=== PATIENT | female | born 1985 | race Caucasian/White ===

== ENCOUNTER 2019-03-16 20:22 | Emergency (ER) | payer SELFPAY ==
[2019-03-16] MEDS ORDERED: LORazepam 2 MG/ML VIAL ONE (21:03)
[2019-03-16] MEDS ORDERED: NA CHLORIDE 0.9% 1,000 ML ONE (21:03)
[2019-03-16] MEDS ORDERED: LEVETIRACETAM 500 MG/5 ML VIAL IV ONE (21:03)
[2019-03-16] MEDS ORDERED: NA CHLORIDE 0.9% 100 ML IV ONE (21:06)
[2019-03-16 21:12] LABS: Absolute Lymphocytes (CBC) 2.2 K/uL (0.7-4.9); Basophils % 0.5 % (0-1.3); Hematocrit 39.8 % (36.0-45.0); Lymphocytes % 21.2 % (15.3-44.8); MPV 7.6 fL (7.6-11.3)
[2019-03-16 21:19] LABS: Protime INR 0.93
[2019-03-16 21:31] LABS: ALT/SGPT 24 U/L (12-78); AST/SGOT 17 U/L (15-37); Albumin 3.8 g/dL (3.4-5.0); Alkaline Phosphatase 76 U/L (45-117); BUN Blood Urea Nitrogen 10 mg/dL (7-18); Bicarbonate 27 mmol/L (21-32); Bilirubin Direct < 0.1 mg/dL (0-0.2); Bilirubin Total 0.1 mg/dL (0.2-1.0); Glucose Level 96 mg/dL (74-106); Potassium 3.7 mmol/L (3.5-5.1); Protein, Total 7.5 g/dL (6.4-8.2); Sodium Level 142 mmol/L (136-145)
--- NOTE | 2019-03-16 22:25 | EDPHYS ---
Physician Documentation [facility] Name: Elsie Chambers Age: 33 yrs Sex: Female : 1985 Arrival Date: 03/16/2019 Time: 20:24 Bed 26 Private MD: Edi Cobb HPI: 03/16 21:18 This 33 yrs old Female presents to ER via Unassigned with complaints of pete Seizure. 21:18 The patient presents after having a single isolated seizure, that lasted 1 minute(s). pete Character of seizure(s): Loss of consciousness: the patient experienced loss of consciousness, Motor activity: focal activity, Incontinence: none, Apnea: the patient did not experience apnea, Circulation: the patient did not experience evidence of pulse disturbance. 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 - Social history:: Smoking status: Patient/guardian denies using tobacco. - Family history:: not pertinent. - Ebola Screening: : No symptoms or risks identified at this time. ROS: 21:18 Constitutional: Negative for fever, chills, and weight loss, Eyes: Negative for injury, pete pain, redness, and discharge, ENT: Negative for injury, pain, and discharge, Neck: Negative for injury, pain, and swelling, Cardiovascular: Negative for chest pain, palpitations, and edema, Respiratory: Negative for shortness of breath, cough, wheezing, and pleuritic chest pain, Abdomen/GI: Negative for abdominal pain, nausea, vomiting, diarrhea, and constipation, Back: Negative for injury and pain, : Negative for injury, bleeding, discharge, and swelling, MS/Extremity: Negative for injury and deformity, Skin: Negative for injury, rash, and discoloration, Psych: Negative for depression, anxiety, suicide ideation, homicidal ideation, and hallucinations, Allergy/Immunology: Negative for hives, rash, and allergies, Endocrine: Negative for neck swelling, polydipsia, polyuria, polyphagia, and marked weight changes, Hematologic/Lymphatic: Negative for swollen nodes, abnormal bleeding, and unusual bruising. 21:18 Neuro: Positive for headache, seizure activity. Exam: 21:18 Constitutional: This is a well developed, well nourished patient who is awake, alert, pete and in no acute distress. Eyes: Pupils equal round and reactive to light, extra-ocular motions intact. Lids and lashes normal. Conjunctiva and sclera are non-icteric and not injected. Cornea within normal limits. Periorbital areas with no swelling, redness, or edema. ENT: Nares patent. No nasal discharge, no septal abnormalities noted. Tympanic membranes are normal and external auditory canals are clear. Oropharynx with no redness, swelling, or masses, exudates, or evidence of obstruction, uvula midline. Mucous membranes moist. Neck: Trachea midline, no thyromegaly or masses palpated, and no cervical lymphadenopathy. Supple, full range of motion without nuchal rigidity, or vertebral point tenderness. No Meningismus. Chest/axilla: Normal chest wall appearance and motion. Nontender with no deformity. No lesions are appreciated. Cardiovascular: Regular rate and rhythm with a normal S1 and S2. No gallops, murmurs, or rubs. Normal PMI, no JVD. No pulse deficits. Respiratory: Lungs have equal breath sounds bilaterally, clear to auscultation and percussion. No rales, rhonchi or wheezes noted. No increased work of breathing, no retractions or nasal flaring. Abdomen/GI: Soft, non-tender, with normal bowel sounds. No distension or tympany. No guarding or rebound. No evidence of tenderness throughout. Back: No spinal tenderness. No costovertebral tenderness. Full range of motion. Skin: Warm, dry with normal turgor. Normal color with no rashes, no lesions, and no evidence of cellulitis. MS/ Extremity: Pulses equal, no cyanosis. Neurovascular intact. Full, normal range of motion. Neuro: Awake and alert, GCS 15, oriented to person, place, time, and situation. Cranial nerves II-XII grossly intact. Motor strength 5/5 in all extremities. Sensory grossly intact. Cerebellar exam normal. Normal gait. Psych: Awake, alert, with orientation to person, place and time. Behavior, mood, and affect are within normal limits. 21:18 Head/face: Noted is contusion, that is superficial, hematoma, of the forehead, Sinus tenderness, is not appreciated. Vital Signs: 20:25 BP 118 / 101; Pulse 100; Resp 18; Temp 98.4; Pulse Ox 100% ; Weight 77.11 kg; Height 5 ea ft. 5 in. (165.10 cm); Pain 7/10; 21:44 BP 173 / 89; Pulse 80; Resp 18; Pulse Ox 97% ; ea 22:58 BP 157 / 85; Pulse 83; Resp 18; Temp 98; Pulse Ox 100% on R/A; ea 20:25 Body Mass Index 28.29 (77.11 kg, 165.10 cm) ea [place] Score: 20:25 Eye Response: spontaneous(4). Verbal Response: oriented(5). Motor Response: obeys ea commands(6). Total: 15. 20:25 Eye Response: spontaneous(4). Verbal Response: oriented(5). Motor Response: obeys ea commands(6). Total: 15. 21:44 Eye Response: spontaneous(4). Verbal Response: oriented(5). Motor Response: obeys ea commands(6). Total: 15. 22:58 Eye Response: spontaneous(4). Verbal Response: oriented(5). Motor Response: obeys ea commands(6). Total: 15. Trauma Score (Adult): 20:25 Eye Response: spontaneous(1); Verbal Response: oriented(1); Motor Response: obeys ea commands(2); Systolic BP: > 89 mm Hg(4); Respiratory Rate: 10 to 29 per min(4); Khris Score: 15; Trauma Score: 12 MDM: 20:24 Patient medically screened. [facility] 21:21 Data reviewed: vital signs, nurses notes, lab test result(s), EKG, radiologic studies, [facility] CT scan. 03/16 20:25 Order name: Acetaminophen [facility] 03/16 20:25 Order name: Basic Metabolic Panel [facility] 03/16 20:25 Order name: CBC with Diff; Complete Time: 21:59 [facility] 03/16 20:25 Order name: ETOH Level; Complete Time: 21:59 [facility] 03/16 20:25 Order name: Hepatic Function; Complete Time: 21:59 [facility] 03/16 20:25 Order name: PT-INR; Complete Time: 21:59 [facility] 03/16 20:25 Order name: Ptt, Activated; Complete Time: 21:59 [facility] 03/16 20:25 Order name: Salicylate; Complete Time: 21:59 [facility] 03/16 20:26 Order name: Acetaminophen Level; Complete Time: 21:59 [facility] 03/16 20:26 Order name: Basic Metabolic Panel; Complete Time: 21:59 [facility] 03/16 21:10 Order name: CT Head C Spine 03/16 20:25 Order name: Urine Test (obtain specimen); Complete Time: 21:52 [facility] 03/16 20:25 Order name: EKG; Complete Time: 20:26 [facility] 03/16 20:25 Order name: EKG - Nurse/Tech; Complete Time: 21:11 [facility] 03/16 20:25 Order name: IV Saline Lock; Complete Time: 20:58 [facility] 03/16 20:25 Order name: Labs collected and sent; Complete Time: 20:58 [facility] 03/16 20:25 Order name: Urine Dipstick-Ancillary (obtain specimen); Complete Time: 21:52 [facility] 03/16 20:25 Order name: Seizure Precautions; Complete Time: 21:11 [facility] 03/16 21:18 Order name: Ice pack; Complete Time: 21:52 [facility] Administered Medications: 21:05 Drug: NS 0.9% 1000 ml Route: IV; Rate: 1 bolus; Site: left hand; ea 22:12 Follow up: Response: No adverse reaction; IV Status: Completed infusion; IV Intake: ea 1000ml 21:10 Drug: Ativan 1 mg Route: IVP; Site: left hand; ea 22:11 Follow up: Response: No adverse reaction ea 21:11 Drug: Keppra 1000 mg Route: IV; Rate: per protocol; Site: left hand; ea 21:30 Follow up: Response: No adverse reaction; IV Status: Completed infusion ea Disposition: 03/16/19 22:01 Discharged to Home. Impression: Epilepsy and recurrent seizures - poorly compliant, Acute maxillary sinusitis - mild. - Condition is Stable. - Discharge Instructions: Seizure, Adult, Sinusitis, Adult, Sinusitis, Adult, [id number], Seizure, Adult, [id number]. - Prescriptions for Keppra 500 mg Oral Tablet - take 2 tablet by ORAL route every 12 hours; 30 tablet. Augmentin 875- 125 mg Oral Tablet - take 1 tablet by ORAL route every 12 hours for 10 days; 20 tablet. - Medication Reconciliation Form, Thank You Letter, Antibiotic Education, Prescription Opioid Use, Work release form, Family Work Release form. - Follow up: Private Physician; When: 2 - 3 days; Reason: Recheck today's complaints, Continuance of care, Re-evaluation by your physician. Follow up: Krishan Hurst; When: 2 - 3 days; Reason: Recheck today's complaints, Re-evaluation by your physician. - Problem is new. - Symptoms have improved. Signatures: Dispatcher [employer] EDMS Edi Ramírez MD MD cha Antunez, Elena RN RN ea Corrections: (The following items were deleted from the chart) 21:25 21:18 Head Brain Wo Cont+CT.RAD.BRZ ordered. [facility] EDMS 21:54 21:25 Chest Single View+RAD.RAD.BRZ ordered. [facility] EDOR 22:45 22:01 03/16/2019 22:01 Discharged to Home. Impression: Epilepsy and recurrent seizures pete - poorly compliant. Condition is Stable. Discharge Instructions: Seizure, Adult, Seizure, Adult, [id number]. Prescriptions for Keppra 500 mg Oral Tablet - take 2 tablet by ORAL route every 12 hours; 30 tablet. and Forms are Medication Reconciliation Form, Thank You Letter, Antibiotic Education, Prescription Opioid Use. Follow up: Private Physician; When: 2 - 3 days; Reason: Recheck today's complaints, Continuance of care, Re-evaluation by your physician. Follow up: Krishan Hurst; When: 2 - 3 days; Reason: Recheck today's complaints, Re-evaluation by your physician. Problem is new. Symptoms have improved. [facility] 22:58 22:45 03/16/2019 22:01 Discharged to Home. Impression: Epilepsy and recurrent seizures ea - poorly compliant; Acute maxillary sinusitis - mild. Condition is Stable. Discharge Instructions: Seizure, Adult, Seizure, Adult, [id number]. Prescriptions for Keppra 500 mg Oral Tablet - take 2 tablet by ORAL route every 12 hours; 30 tablet. and Forms are Medication Reconciliation Form, Thank You Letter, Antibiotic Education, Prescription Opioid Use, Work release form, Family Work Release. Follow up: Private Physician; When: 2 - 3 days; Reason: Recheck today's complaints, Continuance of care, Re-evaluation by your physician. Follow up: Krishan Hurst; When: 2 - 3 days; Reason: Recheck today's complaints, Re-evaluation by your physician. Problem is new. Symptoms have improved. pete
--- NOTE | 2019-03-16 22:25 | ER ---
Nurse's Notes [facility] Name: Elsie Chambers Age: 33 yrs Sex: Female : 1985 Arrival Date: 03/16/2019 Time: 20:24 Bed 26 Private MD: Diagnosis: Epilepsy and recurrent seizures-poorly compliant;Acute maxillary sinusitis-mild Presentation: 03/16 20:25 Presenting complaint: EMS states: Reports pt had a seizure at home, family called EMS. ea Reports pt was post ictal for about thirty minutes after EMS arrived at scene. A \T\ O x 4 now. EMS initiated 20 G IV to left hand, and ns IV fliuds. Pt complaining of nausea and headache. Pt reported she has not taken seizure meds in about two months. Transition of care: patient was not received from another setting of care. Onset of symptoms was March 16, 2019. Risk Assessment: Do you want to hurt yourself or someone else? Patient reports no desire to harm self or others. Initial Sepsis Screen: Does the patient meet any 2 criteria? No. Patient's initial sepsis screen is negative. Does the patient have a suspected source of infection? No. Patient's initial sepsis screen is negative. Care prior to arrival: IV initiated. 20 GA, in the left hand. 20:25 Method Of Arrival: EMS: [facility] ea 20:25 Acuity: ALFA 3 ea 20:25 Mechanism of Injury: Fall from standing position. Trauma event details: Injury occurred ea in the [facility], Injury occurred: at home. Injury occurred: March 16, 2019 Injury occurred at: 19:20. Triage Assessment: 20:25 General: Appears comfortable, Behavior is appropriate for age. Pain: Complains of pain ea in forehead. Neuro: Level of Consciousness is awake, alert, obeys commands, Oriented to person, place, time, situation. Cardiovascular: Patient's skin is warm and dry. Respiratory: Airway is patent Respiratory effort is even, unlabored, Respiratory pattern is regular, symmetrical. Injury Description: Bruise sustained to forehead. 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 - Social history:: Smoking status: Patient/guardian denies using tobacco. - Family history:: not pertinent. - Ebola Screening: : No symptoms or risks identified at this time. Screenin:22 Abuse screen: Denies threats or abuse. Nutritional screening: No deficits noted. ea Tuberculosis screening: No symptoms or risk factors identified. Fall Risk IV access (20 points). Primary Survey: 20:25 NO uncontrolled hemorrhage observed. Breathing/Chest: Respiratory pattern: regular, ea Respiratory effort: spontaneous, unlabored. Circulation: Skin color: pink, Skin temperature: warm. Disability Alert. Exposure/Environment: All clothing and personal items were removed. Forensic evidence collection is not deemed to be indicated at this time. Items placed in patient belonging bag. 21:45 Reassessment Airway Airway Patent Breathing/Chest Respiratory pattern. ea Secondary Survey: 20:25 Musculoskeletal: No deficits noted. Injury Description: Bruise sustained to forehead. ea Assessment: 20:25 General: Appears uncomfortable, Behavior is appropriate for age. Pain: Complains of ea pain in forehead. Neuro: Level of Consciousness is awake, alert, obeys commands, Oriented to person, place, time, situation. EENT: No deficits noted. Cardiovascular: Patient's skin is warm and dry. Respiratory: Airway is patent Respiratory effort is even, unlabored, Respiratory pattern is regular, symmetrical. Derm: Skin is dry, Skin is normal, Skin temperature is warm Bruising that is bright red, on forehead. Musculoskeletal: Circulation, motion, and sensation intact. Vital Signs: 20:25 BP 118 / 101; Pulse 100; Resp 18; Temp 98.4; Pulse Ox 100% ; Weight 77.11 kg; Height 5 ea ft. 5 in. (165.10 cm); Pain 7/10; 21:44 BP 173 / 89; Pulse 80; Resp 18; Pulse Ox 97% ; ea 22:58 BP 157 / 85; Pulse 83; Resp 18; Temp 98; Pulse Ox 100% on R/A; ea 20:25 Body Mass Index 28.29 (77.11 kg, 165.10 cm) ea [place] Coma Score: 20:25 Eye Response: spontaneous(4). Verbal Response: oriented(5). Motor Response: obeys ea commands(6). Total: 15. 20:25 Eye Response: spontaneous(4). Verbal Response: oriented(5). Motor Response: obeys ea commands(6). Total: 15. 21:44 Eye Response: spontaneous(4). Verbal Response: oriented(5). Motor Response: obeys ea commands(6). Total: 15. 22:58 Eye Response: spontaneous(4). Verbal Response: oriented(5). Motor Response: obeys ea commands(6). Total: 15. Trauma Score (Adult): 20:25 Eye Response: spontaneous(1); Verbal Response: oriented(1); Motor Response: obeys ea commands(2); Systolic BP: > 89 mm Hg(4); Respiratory Rate: 10 to 29 per min(4); [place] Score: 15; Trauma Score: 12 ED Course: 20:24 Patient arrived in ED. cf2 20:24 Edi Ramírez MD is Attending Physician. pete 20:25 Patient maintains SpO2 saturation greater than 95% on room air. ea 20:25 Thermoregulation: warm blanket given to patient. ea 20:25 Arm band placed on right wrist. Patient placed in an exam room, on a stretcher, on ea pulse oximetry. 20:25 Patient has correct armband on for positive identification. Placed in gown. Bed in low ea position. Call light in reach. Side rails up X2. 20:25 Seizure precautions initiated. ea 20:38 Camila Morrow, RN is Primary Nurse. ea 20:57 Initial lab(s) drawn, by sd, sent to lab. Inserted saline lock: 22 gauge in right lt1 antecubital area, using aseptic technique. 21:20 Triage completed. ea 21:[address] nj 21:46 CT Head C Spine In Process Unspecified. EDMS 22:01 Krishan Hurst MD is Referral Physician. pete 22:56 No provider procedures requiring assistance completed. IV discontinued, intact, ea bleeding controlled, No redness/swelling at site. Pressure dressing applied. Administered Medications: 21:05 Drug: NS 0.9% 1000 ml Route: IV; Rate: 1 bolus; Site: left hand; ea 22:12 Follow up: Response: No adverse reaction; IV Status: Completed infusion; IV Intake: ea 1000ml 21:10 Drug: Ativan 1 mg Route: IVP; Site: left hand; ea 22:11 Follow up: Response: No adverse reaction ea 21:11 Drug: Keppra 1000 mg Route: IV; Rate: per protocol; Site: left hand; ea 21:30 Follow up: Response: No adverse reaction; IV Status: Completed infusion ea Intake: 22:12 IV: 1000ml; Total: 1000ml. ea 22:50 PO: 0ml; Total: 1000ml. ea Outcome: 22:01 Discharge ordered by . pete 22:57 Discharged to home ambulatory, with family. ea 22:57 Condition: stable 22:57 Discharge instructions given to patient, Instructed on discharge instructions, follow up and referral plans. medication usage, Demonstrated understanding of instructions, follow-up care, medications, Prescriptions given X 2. 22:58 Patient left the ED. ea 22:58 Patient's length of stay was not longer than 2 hours. ea Signatures: Dispatcher [employer] EDEdi King MD MD cha Jordan, Nathan nj Antunez, Elena, RN RN Mellissa Mar lt1 Jesus Tavera 2
[2019-03-16 23:06] VITALS: BP 157/85; TEMP 98; O2SAT 100
--- NOTE | 2019-03-17 11:56 | RAD REPORT ---
EXAM DESCRIPTION: CT - [id number] - 03/17/2019 3:58 am CLINICAL HISTORY: 33 years Female PAIN TECHNIQUE: Contiguous axial CT images obtained through the brain and cervical spine without IV contr ast. Coronal and sagittal reformatted images also provided. This CT exam was performed according to our departmental dose-optimization program, which includes on e or more of the following dose reduction techniques: automated exposure control, adjustment of the m A and/or kV according to patient size, and/or use of iterative reconstruction technique. COMPARISON: No prior exams provided for comparison. FINDINGS: Right frontal scalp hematoma without acute skull fracture. Secretions in the bilateral max illary sinuses. The remainder of the paranasal sinuses and mastoid air cells are clear. Orbital struc tures intact bilaterally. There is no intracranial hemorrhage, extraaxial collection, or acute transcortical infarction. The ve ntricles are normal in size and contour without mass effect or midline shift. There is no acute cervical fracture or spondylolisthesis. Vertebral body and disc space heights are preserved without aggressive osseous lesion. There is no de finite central canal or neural foraminal stenosis at any cervical level. No prevertebral or paraspinal soft tissue swelling. The lung apices are clear. IMPRESSION: Right frontal scalp hematoma. No skull fracture or acute intracranial injury. Mild maxil jinny sinusitis. No acute cervical spine injury. Electronically signed by: Kristen Herrera MD 03/16/2019 10:12 PM DOOR PATCHER Due to temporary technical issues with the PACS/Fluency reporting system, reports are being signed by the in house radiologist as a courtesy to ensure prompt reporting. The interpreting radiologist is f ully responsible for the content of the report.
--- NOTE | 2019-03-17 12:19 | EKG ---
Test Date: 2019-03-16 Test Time: 21:05:09 Sketch Maker: CAYLA MEASUREMENT RESULTS: Intervals: Rate: 109 AK: 152 QRSD: 80 QT: 336 QTc: 452 [place]: P: 40 AK: 152 QRS: -11 T: 11 INTERPRETIVE STATEMENTS: Sinus tachycardia Low voltage QRS Abnormal ECG Compared to ECG 01/31/2016 12:03:36 Sinus rhythm no longer present T-wave abnormality no longer present Possible ischemia no longer present Myocardial infarct finding no longer present Electronically Signed On 03-17-19 12:19:25 PANEL MACHINE SETTER by Mohan Kaur
== END 2019-03-16 22:58 | disposition home or self-care (01) ==
LOC: ER 20:22
DX: G40.802 Other epilepsy, not intractable, without status epilepticus (principal); J01.00 Acute maxillary sinusitis, unspecified; S00.83XA Contusion of other part of head, initial encounter
CPT/HCPCS: 36415; 70450; 72125; 80048; 80076; 80320; 80329; 85025; 85610; 85730; 93005; 96361; 96365; 96375; 99285; J1953; J7030

== ENCOUNTER 2019-11-08 18:54 | Emergency (ER) | payer SELFPAY ==
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
[2019-11-08] MEDS ORDERED: HYDROCODONE/APAP 10/325 TAB ONE (23:36)
--- NOTE | 2019-11-09 15:05 | RAD REPORT ---
EXAM DESCRIPTION: CT Head and Cervical Spine Without Intravenous Contrast CLINICAL HISTORY: The patient is 33 years old and is Female; autoped TECHNIQUE: Axial computed tomography images of the head/brain and cervical spine without intravenous contrast. Sagittal and coronal reformatted images were created and reviewed. This CT exam was pe rformed using one or more of the following dose reduction techniques: automated exposure control, a djustment of the mA and/or kV according to patient size, and/or use of iterative reconstruction techn ique. DLP: 2887 mGy*cm COMPARISON: None. FINDINGS: BRAIN: Unremarkable. No hemorrhage. No significant white matter disease. No edema . VENTRICLES: Unremarkable. No ventriculomegaly. SKULL: No acute fracture. SINUSES: Unremarkable as visualized. No acute sinusitis. MASTOID AIR CELLS: Unremarkable as visualized. No mastoid effusion. VERTEBRAE: Unremarkable. No acute fracture. Normal alignment. DISCS/SPINAL CANAL/NEURAL FORAMINA: No acute findings. No spinal canal stenosis. SOFT TISSUES: Unremarkable. LUNG APICES: Apical lung zones are clear. IMPRESSION: 1. No acute intracranial abnormality. 2. No acute cervical spine fracture or subluxation. EXAM DESCRIPTION: CT Chest, Abdomen and Pelvis With Intravenous Contrast CLINICAL HISTORY: The patient is 33 years old and is Female; autoped TECHNIQUE: Axial computed tomography images of the chest, abdomen and pelvis with intravenous contra st. Sagittal and coronal reformatted images were created and reviewed. This CT exam was performed using one or more of the following dose reduction techniques: automated exposure control, adjustme nt of the mA and/or kV according to patient size, and/or use of iterative reconstruction technique. COMPARISON: None. FINDINGS: CHEST: LUNGS: Unremarkable. No mass. No consolidation. PLEURAL SPACE: Unremarkable. No significant effusion. No pneumothorax. HEART: Unremarkable. No cardiomegaly. No significant pericardial effusion. THYROID: Thyroid is normal. ABDOMEN: LIVER: Unremarkable. No mass. GALLBLADDER AND BILE DUCTS: Unremarkable. No calcified stones. No ductal dilation. PANCREAS: Unremarkable. No ductal dilation. No mass. SPLEEN: Unremarkable. No splenomegaly. ADRENALS: Unremarkable. No mass. KIDNEYS AND URETERS: 2.2 cm left renal cyst. No hydronephrosis. No solid mass. STOMACH AND BOWEL: Unremarkable. No obstruction. No mucosal thickening. PELVIS: APPENDIX: The appendix is seen and is within normal limits. BLADDER: Bladder is decompressed. REPRODUCTIVE: Unremarkable as visualized. CHEST, ABDOMEN and PELVIS: INTRAPERITONEAL SPACE: Small amount of free pelvic fluid, likely physiologic. No free air. BONES/JOINTS: Unremarkable. No acute fracture. No dislocation. SOFT TISSUES: Unremarkable. VASCULATURE: Unremarkable. No aortic aneurysm. LYMPH NODES: Unremarkable. No enlarged lymph nodes. IMPRESSION: No acute intrathoracic, abdominal or pelvic abnormality. Electronically signed by: Leonard Sher DO 11/08/2019 10:27 PM CDT Due to temporary technical issues with the PACS/Fluency reporting system, reports are being signed by the in house radiologist without review as a courtesy to ensure prompt reporting. The interpreting r adiologist is fully responsible for the content of the report.
== END 2019-11-08 23:29 | disposition home or self-care (01) ==
LOC: ER 18:54
DX: M23.8X1 Other internal derangements of right knee (principal); S13.9XXA Sprain of joints and ligaments of unspecified parts of neck, initial encounter; V03.00XA Pedestrian on foot injured in collision with car, pick-up truck or van in nontraffic accident, initial encounter; Y93.89 Activity, other specified; Y92.524 Gas station as the place of occurrence of the external cause; Z91.040 Latex allergy status
CPT/HCPCS: 70450; 71260; 72125; 74177; 82565; 99285; Q9967

== ENCOUNTER 2022-04-17 20:45 | Emergency (ER) | payer OTHER, SELFPAY ==
--- OUTSIDE RECORDS SUMMARY | 2022-04-17 20:50 | XMS REPORT | Continuity of Care Document ---
:1985 Author Organization [facility] t Address [address] [place] [address] [address]. [address] [place] [address] Care Team Providers Name Role Phone Hali Clark Primary Care Physician [phone] Problems This patient has no known problems. Allergies, Adverse Reactions, Alerts This patient has no known allergies or adverse reactions. Medications Ordered Filled Start Stop Current Ordering Indication Dosage Frequency Signature Comments Components Source Medication Medication Date Date Medication? Clinician (SIG) Name Name Dose 2021-0 No Unknown 10-17 00:00: 00 Dose 2021-0 No Unknown 10-17 00:00: 00 Dose 2021-0 No 20 Unknown 10-13 00:00: 00 Dose 2021-0 No 5 Unknown 10-13 00:00: 00 &lt 202-0 No 40 10-10 00:00: 00 &lt 2021-0 No 400 10-09 00:00: 00 TAKE 1 2021-0 No 20 CAPSULE BY 10-09 MOUTH ONCE 00:00: DAILY 00 Dose 2021-0 No 40 Unknown 10-09 00:00: 00 Dose 2021-0 No 25 Unknown 10-09 00:00: 00 Dose 2-0 No 5 Unknown 10-09 00:00: 00 TAKE 1 2021-0 No 20 CAPSULE BY 10-09 MOUTH ONCE 00:00: DAILY 00 &lt 2022-0 No 40 10-09 00:00: 00 &lt 202-0 No 400 10-09 00:00: 00 Dose 2021-0 No 1000 Unknown 10-09 00:00: 00 Dose 2021-0 No 40 Unknown 10-09 00:00: 00 Dose 2-0 No 5 Unknown 10-09 00:00: 00 Dose 2021-0 No 20 Unknown 10-09 00:00: 00 &lt 2022-0 No 400 10-09 00:00: 00 TAKE 1 2022-0 No 20 CAPSULE BY 10-09 MOUTH ONCE 00:00: DAILY 00 Dose 2022-0 No 40 Unknown 10-09 00:00: 00 Dose 2022-0 No 25 Unknown 10-09 00:00: 00 Dose 2022-0 No 5 Unknown 10-09 00:00: 00 TAKE 1 2022-0 No 20 CAPSULE BY 10-09 MOUTH ONCE 00:00: DAILY 00 &lt 2022-0 No 40 10-09 00:00: 00 &lt 2022-0 No 400 10-09 00:00: 00 Dose 2022-0 No 1000 Unknown 10-09 00:00: 00 Dose 2022-0 No 40 Unknown 10-09 00:00: 00 Dose 2022-0 No 5 Unknown 10-09 00:00: 00 Dose 2022-0 No 20 Unknown 10-09 00:00: 00 Dose 2022-0 No 1000 Unknown 10-08 00:00: 00 Dose 2022-0 No 1000 Unknown 10-08 00:00: 00 &lt 2022-0 No 20 10-05 00:00: 00 &lt 2022-0 No 20 10-05 00:00: 00 &lt 2022-0 No 20 10-05 00:00: 00 &lt 2022-0 No 1000 10-03 00:00: 00 &lt 2022-0 No 50 10-03 00:00: 00 &lt 2022-0 No 40 10-03 00:00: 00 TAKE 1 TO 2 2022-0 No 50 TABLETS BY 10-03 MOUTH 00:00: NIGHTLY 00 NEEDED Dose 2022-0 No 5 Unknown 10-03 00:00: 00 &lt 2022-0 No 1000 10-03 00:00: 00 &lt 2022-0 No 50 10-03 00:00: 00 &lt 2022-0 No 40 10-03 00:00: 00 TAKE 1 TO 2 2022-0 No 50 TABLETS BY - MOUTH 00:00: NIGHTLY 00 NEEDED Dose 2022-0 No 5 Unknown 10-03 00:00: 00 &lt 2022-0 No 1000 10-03 00:00: 00 &lt 2022-0 No 50 10-03 00:00: 00 &lt 2022-0 No 40 10-03 00:00: 00 TAKE 1 TO 2 2021-0 No 50 TABLETS BY 7- MOUTH 00:00: NIGHTLY 00 NEEDED Dose 2022-0 No 5 Unknown 10-03 00:00: 00 Dose 2022-0 No 5 Unknown 10-01 00:00: 00 &lt 2022-0 No 1000 10-01 00:00: 00 TAKE 1 2-0 No 20 CAPSULE BY 7 MOUTH ONCE 00:00: DAILY 00 &lt 2022-0 No 5 10-01 00:00: 00 Dose 2022-0 No 25 Unknown 10-01 00:00: 00 Keppra 2022-0 No 1mg 1,000 mg - tablet 00:00: 00 Dose 2022-0 No 5 Unknown 10-01 00:00: 00 &lt 2022-0 No 1000 10-01 00:00: 00 TAKE 1 2-0 No 20 CAPSULE BY 7 MOUTH ONCE 00:00: DAILY 00 &lt 2022-0 No 5 10-01 00:00: 00 Dose 2022-0 No 25 Unknown 10-01 00:00: 00 Keppra 2022-0 No 1mg 1,000 mg - tablet 00:00: 00 Dose 2022-0 No 5 Unknown 10-01 00:00: 00 &lt 2022-0 No 1000 10-01 00:00: 00 TAKE 1 2021-0 No 20 CAPSULE BY 7 MOUTH ONCE 00:00: DAILY 00 &lt 2022-0 No 5 10-01 00:00: 00 Dose 2022-0 No 25 Unknown 10-01 00:00: 00 Keppra 2022-0 No 1mg 1,000 mg - tablet 00:00: 00 Dose 2022-0 No 5 Unknown 10-01 00:00: 00 &lt 2022-0 No 1000 10-01 00:00: 00 TAKE 1 2021-0 No 20 CAPSULE BY 7 MOUTH ONCE 00:00: DAILY 00 &lt 2022-0 No 5 10-01 00:00: 00 Dose 2022-0 No 25 Unknown 10-01 00:00: 00 trazodone 2022-0 No 12mg 50 mg 7- tablet 00:00: 00 fluoxetine 2022-0 No 1mg 40 mg - capsule 00:00: 00 trazodone 2022-0 No 12mg 50 mg 7-26 tablet 00:00: 00 fluoxetine 2022-0 No 1mg 40 mg 7-26 capsule 00:00: 00 trazodone 2022-0 No 12mg 50 mg 7-26 tablet 00:00: 00 fluoxetine 2022-0 No 1mg 40 mg 7-26 capsule 00:00: 00 trazodone 2022-0 No 12mg 50 mg 7-26 tablet 00:00: 00 fluoxetine 2022-0 No 1mg 40 mg 7-26 capsule 00:00: 00 &lt 2022-0 No 20 7-23 00:00: 00 &lt 2022-0 No 20 7-23 00:00: 00 &lt 2022-0 No 20 7-23 00:00: 00 &lt 2022-0 No 20 7-23 00:00: 00 &lt 2022-0 No 5 7-14 00:00: 00 &lt 2022-0 No 1000 7-14 00:00: 00 &lt 2022-0 No 5 7-14 00:00: 00 &lt 2022-0 No 1000 7-14 00:00: 00 &lt 2022-0 No 5 7-14 00:00: 00 &lt 2022-0 No 1000 7-14 00:00: 00 &lt 2022-0 No 5 7-14 00:00: 00 &lt 2022-0 No 1000 7-14 00:00: 00 hydroxyzine 2022-0 No 1mg HCl 10 mg 7-13 tablet 00:00: 00 trazodone 2022-0 No 1mg 50 mg 7-13 tablet 00:00: 00 fluoxetine 2022-0 No 1mg 40 mg 7-13 capsule 00:00: 00 hydroxyzine 2022-0 No 1mg HCl 10 mg 7-13 tablet 00:00: 00 trazodone 2022-0 No 1mg 50 mg 7-13 tablet 00:00: 00 fluoxetine 2022-0 No 1mg 40 mg 7-13 capsule 00:00: 00 hydroxyzine 2022-0 No 1mg HCl 10 mg 7-13 tablet 00:00: 00 trazodone 2022-0 No 1mg 50 mg 7-13 tablet 00:00: 00 fluoxetine 2022-0 No 1mg 40 mg 7-13 capsule 00:00: 00 hydroxyzine 2-0 No 1mg HCl 10 mg 7-13 tablet 00:00: 00 trazodone 2022-0 No 1mg 50 mg 7-13 tablet 00:00: 00 fluoxetine 2022-0 No 1mg 40 mg 7-13 capsule 00:00: 00 &lt 2022-0 No 25 7- 00:00: 00 &lt 2022-0 No 25 7- 00:00: 00 &lt 2022-0 No 25 7- 00:00: 00 &lt 2022-0 No 25 7- 00:00: 00 TAKE 1 2-0 No 20 CAPSULE BY 7-05 MOUTH ONCE 00:00: DAILY 00 TAKE 1 2-0 No 20 CAPSULE BY 7-05 MOUTH ONCE 00:00: DAILY 00 TAKE 1 2-0 No 20 CAPSULE BY 7-05 MOUTH ONCE 00:00: DAILY 00 TAKE 1 2-0 No 20 CAPSULE BY 7-05 MOUTH ONCE 00:00: DAILY 00 &lt 2022-0 No 6-29 00:00: 00 &lt 2022-0 No 6-29 00:00: 00 &lt 2022-0 No 6-29 00:00: 00 &lt 2022-0 No 6-29 00:00: 00 Dose 2022-0 No Unknown 6-28 00:00: 00 Dose 2022-0 No Unknown 6-28 00:00: 00 Dose 2022-0 No Unknown 6-28 00:00: 00 Dose 2022-0 No Unknown 6-28 00:00: 00 &lt 2022-0 No 6-27 00:00: 00 TAKE 1 2-0 No CAPSULE BY 6-27 MOUTH ONCE 00:00: DAILY 00 &lt 2022-0 No 6-27 00:00: 00 Dose 2022-0 No Unknown 6-27 00:00: 00 Dose 2022-0 No Unknown 6-27 00:00: 00 sumatriptan 2022-0 No 1mg 25 mg 6-27 tablet 00:00: 00 Keppra 2022-0 No 1mg 1,000 mg 6-27 tablet 00:00: 00 acyclovir 2022-0 No 1mg 400 mg 6-27 tablet 00:00: 00 Dose 2022-0 No Unknown 6-27 00:00: 00 Dose 2022-0 No Unknown 6-27 00:00: 00 &lt 2022-0 No 6-27 00:00: 00 Dose 2022-0 No Unknown 6- 00:00: 00 TAKE 1 2-0 No CAPSULE BY 6-27 MOUTH ONCE 00:00: DAILY 00 &lt 2022-0 No 6- 00:00: 00 Dose 2022-0 No Unknown 6- 00:00: 00 Dose 2022-0 No Unknown 6- 00:00: 00 Dose 2022-0 No Unknown 6- 00:00: 00 Dose 2022-0 No Unknown 6- 00:00: 00 Dose 2022-0 No Unknown 6- 00:00: 00 Dose 2022-0 No Unknown 6 00:00: 00 Dose 2022-0 No Unknown 6 00:00: 00 Dose 2022-0 No Unknown 6 00:00: 00 Dose 2022-0 No Unknown 6 00:00: 00 Dose 2022-0 No Unknown 6 00:00: 00 Dose 2022-0 No Unknown 6 00:00: 00 sumatriptan 2022-0 No 1mg 25 mg 6-27 tablet 00:00: 00 Keppra 2-0 No 1mg 1,000 mg 6-27 tablet 00:00: 00 acyclovir 2-0 No 1mg 400 mg 6-27 tablet 00:00: 00 Dose 2-0 No Unknown 6 00:00: 00 Dose 2022-0 No Unknown 6- 00:00: 00 &lt 2022-0 No 6- 00:00: 00 TAKE 1 2-0 No CAPSULE BY 6 MOUTH ONCE 00:00: DAILY 00 &lt 2022-0 No 6- 00:00: 00 Dose 2022-0 No Unknown 6- 00:00: 00 Dose 2022-0 No Unknown 6- 00:00: 00 Dose 2022-0 No Unknown 6 00:00: 00 Dose 2022-0 No Unknown 6- 00:00: 00 Dose 2022-0 No Unknown 6 00:00: 00 Dose 2022-0 No Unknown 6- 00:00: 00 Dose 2022-0 No Unknown 6 00:00: 00 sumatriptan 2022-0 No 1mg 25 mg 6-27 tablet 00:00: 00 Keppra 2022-0 No 1mg 1,000 mg 6-27 tablet 00:00: 00 acyclovir 2022-0 No 1mg 400 mg 6-27 tablet 00:00: 00 Dose 2022-0 No Unknown 6-27 00:00: 00 Dose 2022-0 No Unknown 6-27 00:00: 00 &lt 2022-0 No 6-27 00:00: 00 TAKE 1 2022-0 No CAPSULE BY 6-27 MOUTH ONCE 00:00: DAILY 00 &lt 2022-0 No 6-27 00:00: 00 Dose 2022-0 No Unknown 6-27 00:00: 00 Dose 2022-0 No Unknown 6- 00:00: 00 Dose 2022-0 No Unknown 6- 00:00: 00 Dose 2022-0 No Unknown 6- 00:00: 00 Dose 2022-0 No Unknown 6- 00:00: 00 Dose 2022-0 No Unknown 6- 00:00: 00 Dose 2022-0 No Unknown 6-27 00:00: 00 sumatriptan 2022-0 No 1mg 25 mg 6-27 tablet 00:00: 00 Keppra 2022-0 No 1mg 1,000 mg 6-27 tablet 00:00: 00 acyclovir 2022-0 No 1mg 400 mg 6-27 tablet 00:00: 00 sumatriptan 2022-0 No 1mg 25 mg 6-27 tablet 00:00: 00 Keppra 2022-0 No 1mg 1,000 mg 6-27 tablet 00:00: 00 acyclovir 2022-0 No 1mg 400 mg 6-27 tablet 00:00: 00 Dose 2022-0 No Unknown 6-27 00:00: 00 Dose 2022-0 No Unknown 6-27 00:00: 00 Dose 2022-0 No Unknown 6-27 00:00: 00 &lt 2022-0 No 6-27 00:00: 00 TAKE 1 2022-0 No CAPSULE BY 6-27 MOUTH ONCE 00:00: DAILY 00 &lt 2022-0 No 6-27 00:00: 00 Dose 2022-0 No Unknown 6-27 00:00: 00 Dose 2022-0 No Unknown 6-27 00:00: 00 Dose 2022-0 No Unknown 6- 00:00: 00 Dose 2022-0 No Unknown 6- 00:00: 00 Dose 2022-0 No Unknown 6- 00:00: 00 Dose 2022-0 No Unknown 6- 00:00: 00 Dose 2022-0 No Unknown 6- 00:00: 00 Dose 2022-0 No Unknown 6- 00:00: 00 Bromfed DM 1-0 No 5mg/5 2 mg-30 4-28 mL mg-10 mg/5 00:00: mL oral 00 syrup Bromfed DM 1-0 No 5mg/5 2 mg-30 4-28 mL mg-10 mg/5 00:00: mL oral 00 syrup Bromfed DM 1-0 No 5mg/5 2 mg-30 4-28 mL mg-10 mg/5 00:00: mL oral 00 syrup Bromfed DM 1-0 No 5mg/5 2 mg-30 4-28 mL mg-10 mg/5 00:00: mL oral 00 syrup Bromfed DM 1-0 No 5mg/5 2 mg-30 4-28 mL mg-10 mg/5 00:00: mL oral 00 syrup metronidazo 2018-0 No 1% le 0.75 % 7-24 vaginal gel 00:00: 00 metronidazo 2018-0 No 1% le 0.75 % 7-24 vaginal gel 00:00: 00 metronidazo 2018-0 No 1% le 0.75 % 7-24 vaginal gel 00:00: 00 metronidazo 2018-0 No 1% le 0.75 % 7-24 vaginal gel 00:00: 00 metronidazo 2018-0 No 1% le 0.75 % 7-24 vaginal gel 00:00: 00 Vital Signs Vital Name Observation Time Observation Value Comments Source BP Systolic 2022-01-16 11:50:00 118 mm[Hg] BP Diastolic 2022-01-16 11:50:00 86 mm[Hg] Weight Measured 2022-01-16 11:50:00 202.00 pounds Height Measured 2022-01-16 11:50:00 64.00 inches Body Temperature 2022-01-16 11:50:00 98.20 degrees Heart Rate 2022-01-16 11:50:00 81.00 /min Respiratory Rate 2022-01-16 11:50:00 BP Systolic 2021-10-09 09:29:00 105 mm[Hg] BP Diastolic 2021-10-09 09:29:00 75 mm[Hg] Weight Measured 2021-10-09 09:29:00 209.00 pounds Height Measured 2021-10-09 09:29:00 64.00 inches Body Temperature 2021-10-09 09:29:00 97.80 degrees Heart Rate 2021-10-09 09:29:00 96.00 /min Respiratory Rate 2021-10-09 09:29:00 18.00 /min BP Systolic 2021-10-03 14:01:00 107 mm[Hg] BP Diastolic 2021-10-03 14:01:00 75 mm[Hg] Weight Measured 2021-10-03 14:01:00 211.00 pounds Height Measured 2021-10-03 14:01:00 64.00 inches Body Temperature 2021-10-03 14:01:00 98.40 degrees Heart Rate 2021-10-03 14:01:00 80.00 /min Respiratory Rate 2021-10-03 14:01:00 18.00 /min BP Systolic 2021-10-01 17:09:00 118 mm[Hg] BP Diastolic 2021-10-01 17:09:00 84 mm[Hg] Weight Measured 2021-10-01 17:09:00 212.00 pounds Height Measured 2021-10-01 17:09:00 64.00 inches Body Temperature 2021-10-01 17:09:00 98.30 degrees Heart Rate 2021-10-01 17:09:00 96.00 /min Respiratory Rate 2021-10-01 17:09:00 18.00 /min BP Systolic 2021-09-01 16:47:00 137 mm[Hg] BP Diastolic 2021-09-01 16:47:00 94 mm[Hg] Weight Measured 2021-09-01 16:47:00 215.00 pounds Height Measured 2021-09-01 16:47:00 64.00 inches Body Temperature 2021-09-01 16:47:00 98.20 degrees Heart Rate 2021-09-01 16:47:00 86.00 /min Respiratory Rate 2021-09-01 16:47:00 18.00 /min BP Systolic 2020-01-04 14:02:00 130 mm[Hg] BP Diastolic 2020-01-04 14:02:00 87 mm[Hg] Weight Measured 2020-01-04 14:02:00 195.40 pounds Height Measured 2020-01-04 14:02:00 64.00 inches Body Temperature 2020-01-04 14:02:00 98.60 degrees Heart Rate 2020-01-04 14:02:00 96.00 /min Respiratory Rate 2020-01-04 14:02:00 18.00 /min BP Systolic 2017-09-21 16:47:00 126 mm[Hg] BP Diastolic 2017-09-21 16:47:00 88 mm[Hg] Weight Measured 2017-09-21 16:47:00 178.80 pounds Height Measured 2017-09-21 16:47:00 64.00 inches Body Temperature 2017-09-21 16:47:00 98.40 degrees Heart Rate 2017-09-21 16:47:00 87.00 /min Respiratory Rate 2017-09-21 16:47:00 12.00 /min BP Systolic 2016-05-14 16:46:00 108 mm[Hg] BP Diastolic 2016-05-14 16:46:00 77 mm[Hg] Weight Measured 2016-05-14 16:46:00 183.80 pounds Height Measured 2016-05-14 16:46:00 Body Temperature 2016-05-14 16:46:00 98.00 degrees Heart Rate 2016-05-14 16:46:00 89.00 /min Respiratory Rate 2016-05-14 16:46:00 18.00 /min Procedures This patient has no known procedures. Plan of Care Planned Activity Planned Date Details Comments Source Goal Plan of Care Note [code = 12408-5] Goal Plan of Care Note [code = 26975-5] Goal Plan of Care Note [code = 64682-6] Goal Plan of Care Note [code = 14339-9] Goal Plan of Care Note [code = 38261-7] Goal Plan of Care Note [code = 89361-3] Goal Plan of Care Note [code = 60835-7] Goal Plan of Care Note [code = 64350-8] Goal Plan of Care Note [code = 79777-4] Goal Plan of Care Note [code = 85097-2] Goal Plan of Care Note [code = 03983-6] Goal Plan of Care Note [code = 40068-2] Goal Plan of Care Note [code = 35013-9] Goal Plan of Care Note [code = 33647-8] Goal Plan of Care Note [code = 03036-5] Goal Plan of Care Note [code = 94840-8] Goal Plan of Care Note [code = 11246-4] Goal Plan of Care Note [code = 45446-8] Goal Plan of Care Note [code = 52376-4] Goal Plan of Care Note [code = 01872-4] Goal Plan of Care Note [code = 21902-6] Goal Plan of Care Note [code = 00958-4] Goal Plan of Care Note [code = 11125-0] Goal Plan of Care Note [code = 87026-2] Goal Plan of Care Note [code = 62935-5] Goal Plan of Care Note [code = 75001-3] Goal Plan of Care Note [code = 46291-5] Goal Plan of Care Note [code = 06086-5] Goal Plan of Care Note [code = 23241-8] Goal Plan of Care Note [code = 09900-3] Goal Plan of Care Note [code = 49517-0] Goal Plan of Care Note [code = 35344-3] Goal Plan of Care Note [code = 92586-1] Goal Plan of Care Note [code = 70229-4] Goal Plan of Care Note [code = 51073-3] Goal Plan of Care Note [code = 65423-3] Goal Plan of Care Note [code = 05167-2] Goal Plan of Care Note [code = 04559-3] Goal Plan of Care Note [code = 48005-1] Goal Plan of Care Note [code = 41431-5] Goal Plan of Care Note [code = 51371-7] Goal Plan of Care Note [code = 66081-2] Goal Plan of Care Note [code = 61125-2] Goal Plan of Care Note [code = 17114-4] Goal Plan of Care Note [code = 46397-7] Goal Plan of Care Note [code = 20763-0] Goal Plan of Care Note [code = 42109-1] Goal Plan of Care Note [code = 66783-8] Goal Plan of Care Note [code = 03265-5] Goal Plan of Care Note [code = 89330-5] Goal Plan of Care Note [code = 01667-3] Goal Plan of Care Note [code = 37275-9] Goal Plan of Care Note [code = 94060-2] Goal Plan of Care Note [code = 86935-3] Goal Plan of Care Note [code = 11481-3] Goal Plan of Care Note [code = 61832-7] Goal Plan of Care Note [code = 88343-7] Goal Plan of Care Note [code = 51176-7] Goal Plan of Care Note [code = 68122-0] Goal Plan of Care Note [code = 20561-5] Goal Plan of Care Note [code = 06741-6] Goal Plan of Care Note [code = 58525-2] Goal Plan of Care Note [code = 58815-4] Goal Plan of Care Note [code = 89053-6] Goal Plan of Care Note [code = 48862-1] Goal Plan of Care Note [code = 28682-3] Goal Plan of Care Note [code = 98577-0] Goal Plan of Care Note [code = 09364-8] Goal Plan of Care Note [code = 61161-8] Goal Plan of Care Note [code = 98939-3] Goal Plan of Care Note [code = 00247-4] Goal Plan of Care Note [code = 39034-1] Goal Plan of Care Note [code = 98221-4] Goal Plan of Care Note [code = 59683-2] Goal Plan of Care Note [code = 17328-5] Goal Plan of Care Note [code = 88050-6] Goal Plan of Care Note [code = 06702-7] Goal Plan of Care Note [code = 29289-4] Goal Plan of Care Note [code = 96384-9] Goal Plan of Care Note [code = 58256-5] Goal Plan of Care Note [code = 78491-4] Goal Plan of Care Note [code = 09392-4] Goal Plan of Care Note [code = 90398-0] Goal Plan of Care Note [code = 10744-3] Goal Plan of Care Note [code = 96800-2] Goal Plan of Care Note [code = 85043-6] Goal Plan of Care Note [code = 75092-4] Goal Plan of Care Note [code = 29380-2] Goal Plan of Care Note [code = 10430-2] Goal Plan of Care Note [code = 56305-0] Goal Plan of Care Note [code = 99055-7] Goal Plan of Care Note [code = 14277-4] Goal Plan of Care Note [code = 13354-6] Goal Plan of Care Note [code = 46869-8] Goal Plan of Care Note [code = 99655-0] Goal Plan of Care Note [code = 26940-5] Encounters Start End Encounter Admission Attending Care Care Encounter Source Date/Time Date/Time Type Type Clinicians Facility Department ID 2022-01-26 2022-01-26 Outpatient [facility] SFA [id number] Dre 15:47:59 15:47:59 [id number] F Ajay 2022-01-16 2022-01-16 Outpatient SFA SFA [id number] Dre 11:45:20 11:45:20 1111 F Ajay 2022-01-16 2022-01-16 Outpatient [id number] 00:00:00 00:00:00 Visit [id number]-[id number] -[id number] 2022-01-15 2022-01-15 Outpatient SFA SFA [id number] 022 Dre 11:57:54 11:57:54 [id number] F Ajay 2021-10-09 2021-10-09 Outpatient [id number] 00:00:00 00:00:00 Visit [id number] [id number] -[id number]-206 [id number] 2021-10-03 2021-10-03 Outpatient [id number] 00:00:00 00:00:00 Visit [id number] -[id number] [id number] 2021-10-01 Outpatient [id number] 00:00:00 00:00:00 Visit [id number]-[id number] beb-462f-8 -[id number]-[id number] [id number] 2511-06-27 2021-09-01 Outpatient [id number] 00:00:00 00:00:00 Visit [id number] -[id number]-li3 [id number] Results Test Description Test Time Test Comments Results Result Comments Source LIPID PANEL 2021-10-10 03:00:35 Test Item Value Reference Range Interpretation Comme nts CHOLESTEROL (test code = 2210) 205 MG/DL <200 H TRIGLYCERIDES (test code = 2232) 153 MG/DL <150 H HDL CHOLESTEROL (test code = 37 MG/DL >39 L 2219) CALC LDL CHOL (test code = 2237) 140 MG/DL <100 H NOTE: CALCULATED LDL IS BASED ON MENA-ZARCO METHOD WHICHINCLUDES A DJUSTABLE TRIGLYCERIDE:VL DL CHOLESTEROL RATIO.THIS FACT OR VARIES BY MEASURED TRIGLY CERIDE AND NON-HDLCHOLESTE ROL CONCENTRATIONS WITH INCREASED CALCULATED LDL SEENIN HIGHER T RIGLYCERIDE OR LOWER NON-HDL S PECIMENS. FOR MOREINFORMATION , SEE CLIENT ANNOUNCEMENT AT [email or web address] RATIO LDL/HDL (test code = 3.78 RATIO <3.22 H 2237) COMPREHENSIVE METABOLIC [id number] 03:00:35 Test Item Value Reference Range Interpretation Comments GLUCOSE (test code = 92 MG/DL 70-99 2216) BUN (test code = 7 MG/DL 6-20 2207) CREATININE (test 0.95 MG/DL 0.60-1.30 code = 2214) eGFR (2020 CKD-EPI) 80 >60 (test code = 73054) ML/MIN/1.73 CALC BUN/CREAT (test 7 RATIO 6-28 code = 2235) SODIUM (test code = 139 MEQ/L 617-841 0247) POTASSIUM (test code 4.6 MEQ/L 3.5-5.4 = 2227) CHLORIDE (test code 104 MEQ/L 95-107 = 2215) CARBON DIOXIDE (test 26 MEQ/L 19-31 code = 2206) CALCIUM (test code = 9.4 MG/DL 8.5-10.5 2208) PROTEIN, TOTAL (test 7.3 G/DL 6.1-8.3 code = 2229) ALBUMIN (test code = 4.4 G/DL 3.5-5.2 2200) CALC GLOBULIN (test 2.9 G/DL 1.9-3.7 code = 2240) CALC A/G RATIO (test 1.5 RATIO 1.0-2.6 code = 2234) BILIRUBIN, TOTAL 0.3 MG/DL See_Comment [Automated message] (test code = 2207) The [employer] which generated this result transmitted ref erence range: <=1.2. T he reference range was not used to int erpret this result as normal/abnormal . ALKALINE PHOSPHATASE 96 U/L 40-112 (test code = 2203) AST (test code = 10 U/L 9-40 2217) ALT (test code = 11 U/L 5-40 UNLESS OTH ERWISE 2218) INDICATED, ALL TESTING [facility]FORM [facility] [place] [address] [place], [place] [id number] [place] [address] DIRECTOR: LYNN PEREZ M.D. CLIA NUMBER [id number] CAP ACCREDITATION N O. [id number] HEMOGLOBIN [id number] 02:32:54 Test Item Value Reference Range Interpretation Comments HEMOGLOBIN A1c (test code = 18173) 5.3 % 4.2-5.6 CBC W/AUTO DIFF WITH [id number] 01:45:03 Test Item Value Reference Range Interpretation Comments WBC (test code = 9.8 K/UL 3.5-11.0 1001) RBC (test code = 4.56 M/UL 3.80-5.40 1002) HEMOGLOBIN (test code 14.0 G/DL 11.5-15.5 = 1003) HEMATOCRIT (test code 41.7 % 34.0-45.0 = 1004) MCV (test code = 91.4 fL 80.0-99.0 1005) MCH (test code = 30.7 PG 25.0-33.0 1006) MCHC (test code = 33.6 G/DL 31.0-36.0 1007) RDW (test code = 12.6 % 11.5-15.0 1038) NEUTROPHILS (test 66.9 % code = 1008) LYMPHOCYTES (test 24.6 % code = 1010) MONOCYTES (test code 6.8 % = 1011) EOSINOPHILS (test 1.1 % code = 1012) BASOPHILS (test code 0.4 % = 1013) IMMATURE GRANULOCYTES 0.2 % (test code = 1036) NUCLEATED RBCS (test 0.0 /100 WBC'S See_Comment [Aut omated code = 1065) message] The sy stem which generated this result transmitted reference range : 0.0. The refere nce range was not u sed to interpret th is result as normal/abnormal . PLATELET COUNT (test 345 K/UL 130-400 code = 1015) ABSOLUTE NEUTROPHILS 6.57 K/UL 1.50-7.50 (test code = 1066) ABSOLUTE LYMPHOCYTES 2.42 K/UL 1.00-4.00 (test code = 1067) ABSOLUTE MONOCYTES 0.67 K/UL 0.20-1.00 (test code = 1068) ABSOLUTE EOSINOPHILS 0.11 K/UL 0.00-0.50 (test code = 1040) ABSOLUTE BASOPHILS 0.04 K/UL 0.00-0.20 (test code = 1069) ABS IMMATURE 0.02 K/UL 0.00-0.10 GRANULOCYTES (test code = 1020) ABS NUCLEATED RBCS 0.00 K/UL 0.00-0.11 (test code = 54691) CBC W/AUTO [id number] 00:00:00 Test Item Value Reference Range Interpretation Comments WBC (test code = 1001) 9.8 K/UL RBC (test code = 1002) 4.56 M/UL HEMOGLOBIN (test code = 1003) 14.0 G/DL HEMATOCRIT (test code = 1004) 41.7 % MCV (test code = 1005) 91.4 fL MCH (test code = 1006) 30.7 PG MCHC (test code = 1007) 33.6 G/DL RDW (test code = 1038) 12.6 % NEUTROPHILS (test code = 1008) 66.9 % LYMPHOCYTES (test code = 1010) 24.6 % MONOCYTES (test code = 1011) 6.8 % EOSINOPHILS (test code = 1012) 1.1 % BASOPHILS (test code = 1013) 0.4 % IMMATURE GRANULOCYTES (test 0.2 % code = 1036) NUCLEATED RBCS (test code = 0.0 /100WBC'S 1065) PLATELET COUNT (test code = 345 K/UL 1015) ABSOLUTE NEUTROPHILS (test code 6.57 K/UL = 1066) ABSOLUTE LYMPHOCYTES (test code 2.42 K/UL = 1067) ABSOLUTE MONOCYTES (test code = 0.67 K/UL 1068) ABSOLUTE EOSINOPHILS (test code 0.11 K/UL = 1040) ABSOLUTE BASOPHILS (test code = 0.04 K/UL 1069) ABS IMMATURE GRANULOCYTES (test 0.02 K/UL code = 1020) ABS NUCLEATED RBCS (test code = 0.00 K/UL 54269) CBC W/AUTO [id number] 00:00:00 Test Item Value Reference Range Interpretation Comments WBC (test code = 1001) 9.8 K/UL RBC (test code = 1002) 4.56 M/UL HEMOGLOBIN (test code = 1003) 14.0 G/DL HEMATOCRIT (test code = 1004) 41.7 % MCV (test code = 1005) 91.4 fL MCH (test code = 1006) 30.7 PG MCHC (test code = 1007) 33.6 G/DL RDW (test code = 1038) 12.6 % NEUTROPHILS (test code = 1008) 66.9 % LYMPHOCYTES (test code = 1010) 24.6 % MONOCYTES (test code = 1011) 6.8 % EOSINOPHILS (test code = 1012) 1.1 % BASOPHILS (test code = 1013) 0.4 % IMMATURE GRANULOCYTES (test 0.2 % code = 1036) NUCLEATED RBCS (test code = 0.0 /100WBC'S 1065) PLATELET COUNT (test code = 345 K/UL 1015) ABSOLUTE NEUTROPHILS (test code 6.57 K/UL = 1066) ABSOLUTE LYMPHOCYTES (test code 2.42 K/UL = 1067) ABSOLUTE MONOCYTES (test code = 0.67 K/UL 1068) ABSOLUTE EOSINOPHILS (test code 0.11 K/UL = 1040) ABSOLUTE BASOPHILS (test code = 0.04 K/UL 1069) ABS IMMATURE GRANULOCYTES (test 0.02 K/UL code = 1020) ABS NUCLEATED RBCS (test code = 0.00 K/UL 34436) CBC W/AUTO [id number] 00:00:00 Test Item Value Reference Range Interpretation Comments WBC (test code = 1001) 9.8 K/UL RBC (test code = 1002) 4.56 M/UL HEMOGLOBIN (test code = 1003) 14.0 G/DL HEMATOCRIT (test code = 1004) 41.7 % MCV (test code = 1005) 91.4 fL MCH (test code = 1006) 30.7 PG MCHC (test code = 1007) 33.6 G/DL RDW (test code = 1038) 12.6 % NEUTROPHILS (test code = 1008) 66.9 % LYMPHOCYTES (test code = 1010) 24.6 % MONOCYTES (test code = 1011) 6.8 % EOSINOPHILS (test code = 1012) 1.1 % BASOPHILS (test code = 1013) 0.4 % IMMATURE GRANULOCYTES (test 0.2 % code = 1036) NUCLEATED RBCS (test code = 0.0 /100WBC'S 1065) PLATELET COUNT (test code = 345 K/UL 1015) ABSOLUTE NEUTROPHILS (test code 6.57 K/UL = 1066) ABSOLUTE LYMPHOCYTES (test code 2.42 K/UL = 1067) ABSOLUTE MONOCYTES (test code = 0.67 K/UL 1068) ABSOLUTE EOSINOPHILS (test code 0.11 K/UL = 1040) ABSOLUTE BASOPHILS (test code = 0.04 K/UL 1069) ABS IMMATURE GRANULOCYTES (test 0.02 K/UL code = 1020) ABS NUCLEATED RBCS (test code = 0.00 K/UL [address]) LIPID [id number] 00:00:00 Test Item Value Reference Range Interpretation Comments CHOLESTEROL (test code = 2210) 205 MG/DL TRIGLYCERIDES (test code = 2232) 153 MG/DL HDL CHOLESTEROL (test code = 2220) 37 MG/DL CALC LDL CHOL (test code = 2237) 140 MG/DL RISK RATIO LDL/HDL (test code = 3.78 RATIO 2238) LIPID [id number] 00:00:00 Test Item Value Reference Range Interpretation Comments CHOLESTEROL (test code = 2210) 205 MG/DL TRIGLYCERIDES (test code = 2232) 153 MG/DL HDL CHOLESTEROL (test code = 2220) 37 MG/DL CALC LDL CHOL (test code = 2237) 140 MG/DL RISK RATIO LDL/HDL (test code = 3.78 RATIO 2238) HEMOGLOBIN [id number] 00:00:00 Test Item Value Reference Range Interpretation Comments HEMOGLOBIN A1c (test code = 00521) 5.3 % HEMOGLOBIN [id number] 00:00:00 Test Item Value Reference Range Interpretation Comments HEMOGLOBIN A1c (test code = 16625) 5.3 % HEMOGLOBIN [id number] 00:00:00 Test Item Value Reference Range Interpretation Comments HEMOGLOBIN A1c (test code = 40179) 5.3 % COMPREHENSIVE METABOLIC [id number] 00:00:00 Test Item Value Reference Range Interpretation Comments GLUCOSE (test code = 2217) 92 MG/DL BUN (test code = 2208) 7 MG/DL CREATININE (test code = 2214) 0.95 MG/DL eGFR (2020 CKD-EPI) (test code 80 ML/MIN/1.73 = 24697) CALC BUN/CREAT (test code = 7 RATIO 2235) SODIUM (test code = 2231) 139 MEQ/L POTASSIUM (test code = 2228) 4.6 MEQ/L CHLORIDE (test code = 2215) 104 MEQ/L CARBON DIOXIDE (test code = 26 MEQ/L 2205) CALCIUM (test code = 2209) 9.4 MG/DL PROTEIN, TOTAL (test code = 7.3 G/DL 2228) ALBUMIN (test code = 2201) 4.4 G/DL CALC GLOBULIN (test code = 2.9 G/DL 2240) CALC A/G RATIO (test code = 1.5 RATIO 2234) BILIRUBIN, TOTAL (test code = 0.3 MG/DL 2206) ALKALINE PHOSPHATASE (test 96 U/L code = 2204) AST (test code = 2218) 10 U/L ALT (test code = 2219) 11 U/L COMPREHENSIVE METABOLIC [id number] 00:00:00 Test Item Value Reference Range Interpretation Comments GLUCOSE (test code = 2217) 92 MG/DL BUN (test code = 2208) 7 MG/DL CREATININE (test code = 2214) 0.95 MG/DL eGFR (2020 CKD-EPI) (test code 80 ML/MIN/1.73 = 21449) CALC BUN/CREAT (test code = 7 RATIO 2235) SODIUM (test code = 2231) 139 MEQ/L POTASSIUM (test code = 2228) 4.6 MEQ/L CHLORIDE (test code = 2215) 104 MEQ/L CARBON DIOXIDE (test code = 26 MEQ/L 2205) CALCIUM (test code = 220) 9.4 MG/DL PROTEIN, TOTAL (test code = 7.3 G/DL 2228) ALBUMIN (test code = 220) 4.4 G/DL CALC GLOBULIN (test code = 2.9 G/DL 2239) CALC A/G RATIO (test code = 1.5 RATIO 2233) BILIRUBIN, TOTAL (test code = 0.3 MG/DL 2206) ALKALINE PHOSPHATASE (test 96 U/L code = 220) AST (test code = 2218) 10 U/L ALT (test code = 221) 11 U/L CT/NG, NAAT, [id number] 08:29:05 Test Item Value Reference Range Interpretation Comments GONORRHEA, NAAT NEGATIVE NEGATIVE IMPORTA NT NOTICE: SEE (test code = [place] [address]) [email or web address] Note: Assay methodology is nucleic acid amplification b y tubular products fabricator m ediated amplification ( TMA) utilizing the A ptima Combo 2 Assay. CHLAMYDIA, NAAT NEGATIVE NEGATIVE IMPORTA NT NOTICE: SEE (test code = [place] [address]) [email or web address] Note: Assay methodology is nucleic acid amplification b y tubular products fabricator m ediated amplification ( TMA) utilizing the A ptima Combo [address]/NG, NAAT, URINE [ADDED]2021-10-08 00:00:00 Test Item Value Reference Range Interpretation Comments GONORRHEA, NAAT (test code = 35413) NEGATIVE CHLAMYDIA, NAAT (test code = 63553) NEGATIVE CT/NG, NAAT, URINE [ADDED]2021-10-08 00:00:00 Test Item Value Reference Range Interpretation Comments GONORRHEA, NAAT (test code = 36075) NEGATIVE CHLAMYDIA, NAAT (test code = 41688) NEGATIVE CT/NG, NAAT, URINE [ADDED]2021-10-08 00:00:00 Test Item Value Reference Range Interpretation Comments GONORRHEA, NAAT (test code = 61459) NEGATIVE CHLAMYDIA, NAAT (test code = 42313) NEGATIVE VAGINAL PATHOGENS DNA [id number] 14:55:46 Test Item Value Reference Range Interpretation Comments LUCIA SPECIES (test code = 36484) NEGATIVE NEGATIVE G. VAGINALIS (test code = 72288) POSITIVE NEGATIVE A T. VAGINALIS (test code = 49661) NEGATIVE NEGATIVE HIV 1/2 4TH GEN, RFLX [id number] 06:05:55 Test Item Value Reference Range Interpretation Comments HIV 1/2 4TH GEN, RFLX CONF (test NON-REACTIVE NON-REACTIVE code = 3514) HEPATITIS PANEL, [id number] 06:05:55 Test Item Value Reference Range Interpretation Comments HEPATITIS A IgM (test NON-REACTIVE NON-REACTIVE code = 93141) HEPATITIS B CORE IgM NON-REACTIVE NON-REACTIVE (test code = 4644) HEPATITIS B SURF AG NON-REACTIVE NON-REACTIVE (test code = 2739) HEPATITIS C ANTIBODY NON-REACTIVE NON-REACTIVE (test code = 4675) INTERPRETATION (NOTE) Hepatitis A HEPATITIS A: (test serology shows no code = 2552) evidence of acu te hepatitis A. INTERPRETATION (NOTE) Hepatitis B HEPATITIS B: (test serology shows no code = 03076) evidence of ac monique hepatitis B and no indication of exposure to hepatitis B vir us in the previous si xto eight months. INTERPRETATION (NOTE) Hepatitis C HEPATITIS C: (test serology shows no code = 98723) evidence of ex posure to hepatitisC v irus at this time. I t can take up to 12 m onths after exposure tothe hepatitis C vir us for antibodies to become detectab le in the blood in ce rtain patients. UNLES S OTHERWISE INDIC ATED, ALL TESTING PERFORMED [facility] [address] [facility] [place] [address] [facility] DIRECTOR: Kareem HERRIA NUMBER [id number] [place]. [id number] 05:17:45 Test Item Value Reference Range Interpretation Comments RPR RESULT (test code = NON-REACTIVE NON-REACTIVE 3501) RPR TITER (test code = 3500) NOT INDIC. TITER NOT INDIC. VAGINAL PATHOGENS DNA PANEL [ADDED]2021-10-04 00:00:00 Test Item Value Reference Range Interpretation Comments LUCIA SPECIES (test code = ) NEGATIVE G. VAGINALIS (test code = 69035) POSITIVE T. VAGINALIS (test code = 02046) NEGATIVE HIV 1/2 4TH GEN, RFLX CONF [ADDED]2021-10-04 00:00:00 Test Item Value Reference Range Interpretation Comments HIV 1/2 4TH GEN, RFLX CONF (test NON-REACTIVE code = 3514) RPR [ADDED]2021-10-04 00:00:00 Test Item Value Reference Range Interpretation Comments RPR RESULT (test code = NON-REACTIVE 3501) RPR TITER (test code = 3500) NOT INDIC. TITER RPR [ADDED]2021-10-04 00:00:00 Test Item Value Reference Range Interpretation Comments RPR RESULT (test code = NON-REACTIVE 3501) RPR TITER (test code = 3500) NOT INDIC. TITER HEPATITIS PANEL, ACUTE [ADDED]2021-10-04 00:00:00 Test Item Value Reference Range Interpretation Comments HEPATITIS A IgM (test code = NON-REACTIVE 12958) HEPATITIS B CORE IgM (test code NON-REACTIVE = 4644) HEPATITIS B SURF AG (test code = NON-REACTIVE 2739) HEPATITIS C ANTIBODY (test code NON-REACTIVE = 4675) INTERPRETATION HEPATITIS A: (NOTE) (test code = 2552) INTERPRETATION HEPATITIS B: (NOTE) (test code = 08868) INTERPRETATION HEPATITIS C: (NOTE) (test code = 91057) VAGINAL PATHOGENS DNA PANEL [ADDED]2021-10-04 00:00:00 Test Item Value Reference Range Interpretation Comments LUCIA SPECIES (test code = ) NEGATIVE G. VAGINALIS (test code = 16645) POSITIVE T. VAGINALIS (test code = 37281) NEGATIVE VAGINAL PATHOGENS DNA PANEL [ADDED]2021-10-04 00:00:00 Test Item Value Reference Range Interpretation Comments LUCIA SPECIES (test code = ) NEGATIVE G. VAGINALIS (test code = 62892) POSITIVE T. VAGINALIS (test code = 49665) NEGATIVE HIV 1/2 4TH GEN, RFLX CONF [ADDED]2021-10-04 00:00:00 Test Item Value Reference Range Interpretation Comments HIV 1/2 4TH GEN, RFLX CONF (test NON-REACTIVE code = 3514) HIV 1/2 4TH GEN, RFLX CONF [ADDED]2021-10-04 00:00:00 Test Item Value Reference Range Interpretation Comments HIV 1/2 4TH GEN, RFLX CONF (test NON-REACTIVE code = 3514) RPR [ADDED]2021-10-04 00:00:00 Test Item Value Reference Range Interpretation Comments RPR RESULT (test code = NON-REACTIVE 3501) RPR TITER (test code = 3500) NOT INDIC. TITER RPR [ADDED]2021-10-04 00:00:00 Test Item Value Reference Range Interpretation Comments RPR RESULT (test code = NON-REACTIVE 3501) RPR TITER (test code = 3500) NOT INDIC. TITER RPR [ADDED]2021-10-04 00:00:00 Test Item Value Reference Range Interpretation Comments RPR RESULT (test code = NON-REACTIVE 3501) RPR TITER (test code = 3500) NOT INDIC. TITER HEPATITIS PANEL, ACUTE [ADDED]2021-10-04 00:00:00 Test Item Value Reference Range Interpretation Comments HEPATITIS A IgM (test code = NON-REACTIVE 72610) HEPATITIS B CORE IgM (test code NON-REACTIVE = 4644) HEPATITIS B SURF AG (test code = NON-REACTIVE 2739) HEPATITIS C ANTIBODY (test code NON-REACTIVE = 4675) INTERPRETATION HEPATITIS A: (NOTE) (test code = 2552) INTERPRETATION HEPATITIS B: (NOTE) (test code = 64656) INTERPRETATION HEPATITIS C: (NOTE) (test code = 40457) HEPATITIS PANEL, ACUTE [ADDED]2021-10-04 00:00:00 Test Item Value Reference Range Interpretation Comments HEPATITIS A IgM (test code = NON-REACTIVE 36865) HEPATITIS B CORE IgM (test code NON-REACTIVE = 4644) HEPATITIS B SURF AG (test code = NON-REACTIVE 2739) HEPATITIS C ANTIBODY (test code NON-REACTIVE = 4675) INTERPRETATION HEPATITIS A: (NOTE) (test code = 2552) INTERPRETATION HEPATITIS B: (NOTE) (test code = 88453) INTERPRETATION HEPATITIS C: (NOTE) (test code = 94025) [id number] 12:23:45 Test Item Value Reference Interpretation Comments Range LEVETIRACETAM 18.2 12.0-46.0 This test was developed and (test code = mcg/mL its performance 02646) characteristics determined by [facility] ([facility]). It has n ot beencleared or approved by the U.S. Food and Drug Admini stration (FDA).The FDA h as determined that such clear ance or approval is not necessary. This test is us ed for clinical purpos es and should not beregarded as investigational or for research. [facility] i s qualified toperform high complexity testing under t Clinical LaboratoryImpro vement Amendments (CLI A). TESTING PERFORMED AT [facility] [address], [address], [address] [place], [place] [address] CLIA NO: [id number] UNLE SS OTHERWISE INDICATED, ALL TESTING PERFORMED [facility] [address] [place] [address] LABORATORY DIRE CTOR: LYNN PEREZ M.D. CLIA NUMBER [id number] [place]. [id number] 00:00:00 Test Item Value Reference Range Interpretation Comments LEVETIRACETAM (test code = 60941) 18.2 mcg/mL [id number] 00:00:00 Test Item Value Reference Range Interpretation Comments LEVETIRACETAM (test code = 85222) 18.2 mcg/mL [id number] 00:00:00 Test Item Value Reference Range Interpretation Comments LEVETIRACETAM (test code = 22859) 18.2 mcg/mL [id number] 00:00:00 Test Item Value Reference Range Interpretation Comments LEVETIRACETAM (test code = 73686) 18.2 mcg/mL [id number] 00:00:00 Test Item Value Reference Range Interpretation Comments LEVETIRACETAM (test code = 60966) 18.2 mcg/mL CBC W/AUTO DIFF WITH [id number] 06:02:13 Test Item Value Reference Range Interpretation Comments WBC (test code = 10.8 K/UL 3.5-11.0 1001) RBC (test code = 4.43 M/UL 3.80-5.40 1002) HEMOGLOBIN (test 13.5 G/DL 11.5-15.5 code = 1003) HEMATOCRIT (test 40.1 % 34.0-45.0 code = 1004) MCV (test code = 90.5 fL 80.0-99.0 1005) MCH (test code = 30.5 PG 25.0-33.0 1006) MCHC (test code = 33.7 G/DL 31.0-36.0 1007) RDW (test code = 12.4 % 11.5-15.0 1038) NEUTROPHILS (test 68.6 % code = 1008) LYMPHOCYTES (test 22.2 % code = 1010) MONOCYTES (test code 6.8 % = 1011) EOSINOPHILS (test 1.8 % code = 1012) BASOPHILS (test code 0.5 % = 1013) IMMATURE 0.1 % GRANULOCYTES (test code = 1036) NUCLEATED RBCS (test 0.0 /100 See_Comment [Autom ated message] code = 1065) WBC'S The system [id number] generated this result transmitted ref erence range: 0.0. The reference range was not used to int erpret this result as normal/abnormal . PLATELET COUNT (test 398 K/UL 130-400 code = 1015) ABSOLUTE NEUTROPHILS 7.42 K/UL 1.50-7.50 (test code = 1066) ABSOLUTE LYMPHOCYTES 2.40 K/UL 1.00-4.00 (test code = 1067) ABSOLUTE MONOCYTES 0.74 K/UL 0.20-1.00 (test code = 1068) ABSOLUTE EOSINOPHILS 0.19 K/UL 0.00-0.50 (test code = 1040) ABSOLUTE BASOPHILS 0.05 K/UL 0.00-0.20 (test code = 1069) ABS IMMATURE 0.01 K/UL 0.00-0.10 GRANULOCYTES (test code = 1020) ABS NUCLEATED RBCS 0.00 K/UL 0.00-0.11 UNLESS O THERWISE (test code = 68166) INDICATE D, ALL TESTING PERFORM [facility] [address] [place] [address] [facility] DIRECTOR: LYNN PEREZ M.D. CLIA NUMBER [id number] CAP ACCREDITATION N O. [id number] CBC W/AUTO [id number] 00:00:00 Test Item Value Reference Range Interpretation Comments WBC (test code = 1001) 10.8 K/UL RBC (test code = 1002) 4.43 M/UL HEMOGLOBIN (test code = 1003) 13.5 G/DL HEMATOCRIT (test code = 1004) 40.1 % MCV (test code = 1005) 90.5 fL MCH (test code = 1006) 30.5 PG MCHC (test code = 1007) 33.7 G/DL RDW (test code = 1038) 12.4 % NEUTROPHILS (test code = 1008) 68.6 % LYMPHOCYTES (test code = 1010) 22.2 % MONOCYTES (test code = 1011) 6.8 % EOSINOPHILS (test code = 1012) 1.8 % BASOPHILS (test code = 1013) 0.5 % IMMATURE GRANULOCYTES (test 0.1 % code = 1036) NUCLEATED RBCS (test code = 0.0 /100WBC'S 1065) PLATELET COUNT (test code = 398 K/UL 1015) ABSOLUTE NEUTROPHILS (test code 7.42 K/UL = 1066) ABSOLUTE LYMPHOCYTES (test code 2.40 K/UL = 1067) ABSOLUTE MONOCYTES (test code = 0.74 K/UL 1068) ABSOLUTE EOSINOPHILS (test code 0.19 K/UL = 1040) ABSOLUTE BASOPHILS (test code = 0.05 K/UL 1069) ABS IMMATURE GRANULOCYTES (test 0.01 K/UL code = 1020) ABS NUCLEATED RBCS (test code = 0.00 K/UL 20646) CBC W/AUTO [id number] 00:00:00 Test Item Value Reference Range Interpretation Comments WBC (test code = 1001) 10.8 K/UL RBC (test code = 1002) 4.43 M/UL HEMOGLOBIN (test code = 1003) 13.5 G/DL HEMATOCRIT (test code = 1004) 40.1 % MCV (test code = 1005) 90.5 fL MCH (test code = 1006) 30.5 PG MCHC (test code = 1007) 33.7 G/DL RDW (test code = 1038) 12.4 % NEUTROPHILS (test code = 1008) 68.6 % LYMPHOCYTES (test code = 1010) 22.2 % MONOCYTES (test code = 1011) 6.8 % EOSINOPHILS (test code = 1012) 1.8 % BASOPHILS (test code = 1013) 0.5 % IMMATURE GRANULOCYTES (test 0.1 % code = 1036) NUCLEATED RBCS (test code = 0.0 /100WBC'S 1065) PLATELET COUNT (test code = 398 K/UL 1015) ABSOLUTE NEUTROPHILS (test code 7.42 K/UL = 1066) ABSOLUTE LYMPHOCYTES (test code 2.40 K/UL = 1067) ABSOLUTE MONOCYTES (test code = 0.74 K/UL 1068) ABSOLUTE EOSINOPHILS (test code 0.19 K/UL = 1040) ABSOLUTE BASOPHILS (test code = 0.05 K/UL 1069) ABS IMMATURE GRANULOCYTES (test 0.01 K/UL code = 1020) ABS NUCLEATED RBCS (test code = 0.00 K/UL 82376) CBC W/AUTO [id number] 00:00:00 Test Item Value Reference Range Interpretation Comments WBC (test code = 1001) 10.8 K/UL RBC (test code = 1002) 4.43 M/UL HEMOGLOBIN (test code = 1003) 13.5 G/DL HEMATOCRIT (test code = 1004) 40.1 % MCV (test code = 1005) 90.5 fL MCH (test code = 1006) 30.5 PG MCHC (test code = 1007) 33.7 G/DL RDW (test code = 1038) 12.4 % NEUTROPHILS (test code = 1008) 68.6 % LYMPHOCYTES (test code = 1010) 22.2 % MONOCYTES (test code = 1011) 6.8 % EOSINOPHILS (test code = 1012) 1.8 % BASOPHILS (test code = 1013) 0.5 % IMMATURE GRANULOCYTES (test 0.1 % code = 1036) NUCLEATED RBCS (test code = 0.0 /100WBC'S 1065) PLATELET COUNT (test code = 398 K/UL 1015) ABSOLUTE NEUTROPHILS (test code 7.42 K/UL = 1066) ABSOLUTE LYMPHOCYTES (test code 2.40 K/UL = 1067) ABSOLUTE MONOCYTES (test code = 0.74 K/UL 1068) ABSOLUTE EOSINOPHILS (test code 0.19 K/UL = 1040) ABSOLUTE BASOPHILS (test code = 0.05 K/UL 1069) ABS IMMATURE GRANULOCYTES (test 0.01 K/UL code = 1020) ABS NUCLEATED RBCS (test code = 0.00 K/UL 24459) CBC W/AUTO [id number] 00:00:00 Test Item Value Reference Range Interpretation Comments WBC (test code = 1001) 10.8 K/UL RBC (test code = 1002) 4.43 M/UL HEMOGLOBIN (test code = 1003) 13.5 G/DL HEMATOCRIT (test code = 1004) 40.1 % MCV (test code = 1005) 90.5 fL MCH (test code = 1006) 30.5 PG MCHC (test code = 1007) 33.7 G/DL RDW (test code = 1038) 12.4 % NEUTROPHILS (test code = 1008) 68.6 % LYMPHOCYTES (test code = 1010) 22.2 % MONOCYTES (test code = 1011) 6.8 % EOSINOPHILS (test code = 1012) 1.8 % BASOPHILS (test code = 1013) 0.5 % IMMATURE GRANULOCYTES (test 0.1 % code = 1036) NUCLEATED RBCS (test code = 0.0 /100WBC'S 1065) PLATELET COUNT (test code = 398 K/UL 1015) ABSOLUTE NEUTROPHILS (test code 7.42 K/UL = 1066) ABSOLUTE LYMPHOCYTES (test code 2.40 K/UL = 1067) ABSOLUTE MONOCYTES (test code = 0.74 K/UL 1068) ABSOLUTE EOSINOPHILS (test code 0.19 K/UL = 1040) ABSOLUTE BASOPHILS (test code = 0.05 K/UL 1069) ABS IMMATURE GRANULOCYTES (test 0.01 K/UL code = 1020) ABS NUCLEATED RBCS (test code = 0.00 K/UL 98162) CBC W/AUTO [id number] 00:00:00 Test Item Value Reference Range Interpretation Comments WBC (test code = 1001) 10.8 K/UL RBC (test code = 1002) 4.43 M/UL HEMOGLOBIN (test code = 1003) 13.5 G/DL HEMATOCRIT (test code = 1004) 40.1 % MCV (test code = 1005) 90.5 fL MCH (test code = 1006) 30.5 PG MCHC (test code = 1007) 33.7 G/DL RDW (test code = 1038) 12.4 % NEUTROPHILS (test code = 1008) 68.6 % LYMPHOCYTES (test code = 1010) 22.2 % MONOCYTES (test code = 1011) 6.8 % EOSINOPHILS (test code = 1012) 1.8 % BASOPHILS (test code = 1013) 0.5 % IMMATURE GRANULOCYTES (test 0.1 % code = 1036) NUCLEATED RBCS (test code = 0.0 /100WBC'S 1065) PLATELET COUNT (test code = 398 K/UL 1015) ABSOLUTE NEUTROPHILS (test code 7.42 K/UL = 1066) ABSOLUTE LYMPHOCYTES (test code 2.40 K/UL = 1067) ABSOLUTE MONOCYTES (test code = 0.74 K/UL 1068) ABSOLUTE EOSINOPHILS (test code 0.19 K/UL = 1040) ABSOLUTE BASOPHILS (test code = 0.05 K/UL 1069) ABS IMMATURE GRANULOCYTES (test 0.01 K/UL code = 1020) ABS NUCLEATED RBCS (test code = 0.00 K/UL 63850) CBC W/AUTO [id number] 00:00:00 Test Item Value Reference Range Interpretation Comments WBC (test code = 1001) 10.8 K/UL RBC (test code = 1002) 4.43 M/UL HEMOGLOBIN (test code = 1003) 13.5 G/DL HEMATOCRIT (test code = 1004) 40.1 % MCV (test code = 1005) 90.5 fL MCH (test code = 1006) 30.5 PG MCHC (test code = 1007) 33.7 G/DL RDW (test code = 1038) 12.4 % NEUTROPHILS (test code = 1008) 68.6 % LYMPHOCYTES (test code = 1010) 22.2 % MONOCYTES (test code = 1011) 6.8 % EOSINOPHILS (test code = 1012) 1.8 % BASOPHILS (test code = 1013) 0.5 % IMMATURE GRANULOCYTES (test 0.1 % code = 1036) NUCLEATED RBCS (test code = 0.0 /100WBC'S 1065) PLATELET COUNT (test code = 398 K/UL 1015) ABSOLUTE NEUTROPHILS (test code 7.42 K/UL = 1066) ABSOLUTE LYMPHOCYTES (test code 2.40 K/UL = 1067) ABSOLUTE MONOCYTES (test code = 0.74 K/UL 1068) ABSOLUTE EOSINOPHILS (test code 0.19 K/UL = 1040) ABSOLUTE BASOPHILS (test code = 0.05 K/UL 1069) ABS IMMATURE GRANULOCYTES (test 0.01 K/UL code = 1020) ABS NUCLEATED RBCS (test code = 0.00 K/UL 24291) CBC W/AUTO [id number] 00:00:00 Test Item Value Reference Range Interpretation Comments WBC (test code = 1001) 10.8 K/UL RBC (test code = 1002) 4.43 M/UL HEMOGLOBIN (test code = 1003) 13.5 G/DL HEMATOCRIT (test code = 1004) 40.1 % MCV (test code = 1005) 90.5 fL MCH (test code = 1006) 30.5 PG MCHC (test code = 1007) 33.7 G/DL RDW (test code = 1038) 12.4 % NEUTROPHILS (test code = 1008) 68.6 % LYMPHOCYTES (test code = 1010) 22.2 % MONOCYTES (test code = 1011) 6.8 % EOSINOPHILS (test code = 1012) 1.8 % BASOPHILS (test code = 1013) 0.5 % IMMATURE GRANULOCYTES (test 0.1 % code = 1036) NUCLEATED RBCS (test code = 0.0 /100WBC'S 1065) PLATELET COUNT (test code = 398 K/UL 1015) ABSOLUTE NEUTROPHILS (test code 7.42 K/UL = 1066) ABSOLUTE LYMPHOCYTES (test code 2.40 K/UL = 1067) ABSOLUTE MONOCYTES (test code = 0.74 K/UL 1068) ABSOLUTE EOSINOPHILS (test code 0.19 K/UL = 1040) ABSOLUTE BASOPHILS (test code = 0.05 K/UL 1069) ABS IMMATURE GRANULOCYTES (test 0.01 K/UL code = 1020) ABS NUCLEATED RBCS (test code = 0.00 K/UL 76149) CBC W/AUTO [id number] 00:00:00 Test Item Value Reference Range Interpretation Comments WBC (test code = 1001) 10.8 K/UL RBC (test code = 1002) 4.43 M/UL HEMOGLOBIN (test code = 1003) 13.5 G/DL HEMATOCRIT (test code = 1004) 40.1 % MCV (test code = 1005) 90.5 fL MCH (test code = 1006) 30.5 PG MCHC (test code = 1007) 33.7 G/DL RDW (test code = 1038) 12.4 % NEUTROPHILS (test code = 1008) 68.6 % LYMPHOCYTES (test code = 1010) 22.2 % MONOCYTES (test code = 1011) 6.8 % EOSINOPHILS (test code = 1012) 1.8 % BASOPHILS (test code = 1013) 0.5 % IMMATURE GRANULOCYTES (test 0.1 % code = 1036) NUCLEATED RBCS (test code = 0.0 /100WBC'S 1065) PLATELET COUNT (test code = 398 K/UL 1015) ABSOLUTE NEUTROPHILS (test code 7.42 K/UL = 1066) ABSOLUTE LYMPHOCYTES (test code 2.40 K/UL = 1067) ABSOLUTE MONOCYTES (test code = 0.74 K/UL 1068) ABSOLUTE EOSINOPHILS (test code 0.19 K/UL = 1040) ABSOLUTE BASOPHILS (test code = 0.05 K/UL 1069) ABS IMMATURE GRANULOCYTES (test 0.01 K/UL code = 1020) ABS NUCLEATED RBCS (test code = 0.00 K/UL 24044) CBC W/AUTO [id number] 00:00:00 Test Item Value Reference Range Interpretation Comments WBC (test code = 1001) 10.8 K/UL RBC (test code = 1002) 4.43 M/UL HEMOGLOBIN (test code = 1003) 13.5 G/DL HEMATOCRIT (test code = 1004) 40.1 % MCV (test code = 1005) 90.5 fL MCH (test code = 1006) 30.5 PG MCHC (test code = 1007) 33.7 G/DL RDW (test code = 1038) 12.4 % NEUTROPHILS (test code = 1008) 68.6 % LYMPHOCYTES (test code = 1010) 22.2 % MONOCYTES (test code = 1011) 6.8 % EOSINOPHILS (test code = 1012) 1.8 % BASOPHILS (test code = 1013) 0.5 % IMMATURE GRANULOCYTES (test 0.1 % code = 1036) NUCLEATED RBCS (test code = 0.0 /100WBC'S 1065) PLATELET COUNT (test code = 398 K/UL 1015) ABSOLUTE NEUTROPHILS (test code 7.42 K/UL = 1066) ABSOLUTE LYMPHOCYTES (test code 2.40 K/UL = 1067) ABSOLUTE MONOCYTES (test code = 0.74 K/UL 1068) ABSOLUTE EOSINOPHILS (test code 0.19 K/UL = 1040) ABSOLUTE BASOPHILS (test code = 0.05 K/UL 1069) ABS IMMATURE GRANULOCYTES (test 0.01 K/UL code = 1020) ABS NUCLEATED RBCS (test code = 0.00 K/UL 86689) HIV AB/AG COMBO RFLX [id number] 00:00:00 Test Item Value Reference Range Interpretation Comments HIV 1/2 4TH GEN, RFLX CONF (test NON-REACTIVE code = 3514) GC AND CHLAMYDIA, AMPLIFIED, [id number] 00:00:00 Test Item Value Reference Range Interpretation Comments GONORRHEA, NAAT (test code = 63397) NEGATIVE CHLAMYDIA, NAAT (test code = 86271) NEGATIVE [id number] 00:00:00 Test Item Value Reference Range Interpretation Comments RPR RESULT (test code = NON-REACTIVE 3501) RPR TITER (test code = 3500) NOT INDIC. TITER [id number] 00:00:00 Test Item Value Reference Range Interpretation Comments RPR RESULT (test code = NON-REACTIVE 3501) RPR TITER (test code = 3500) NOT INDIC. TITER TRICHOMONAS, URINE, [id number] 00:00:00 Test Item Value Reference Range Interpretation Comments TRICHOMONAS, NAAT (test code = NEGATIVE 57309) HIV AB/AG COMBO RFLX [id number] 00:00:00 Test Item Value Reference Range Interpretation Comments HIV 1/2 4TH GEN, RFLX CONF (test NON-REACTIVE code = 3514) GC AND CHLAMYDIA, AMPLIFIED, [id number] 00:00:00 Test Item Value Reference Range Interpretation Comments GONORRHEA, NAAT (test code = 89702) NEGATIVE CHLAMYDIA, NAAT (test code = 47034) NEGATIVE [id number] 00:00:00 Test Item Value Reference Range Interpretation Comments RPR RESULT (test code = NON-REACTIVE 3501) RPR TITER (test code = 3500) NOT INDIC. TITER [id number] 00:00:00 Test Item Value Reference Range Interpretation Comments RPR RESULT (test code = NON-REACTIVE 3501) RPR TITER (test code = 3500) NOT INDIC. TITER TRICHOMONAS, URINE, [id number] 00:00:00 Test Item Value Reference Range Interpretation Comments TRICHOMONAS, NAAT (test code = NEGATIVE 33192) HIV AB/AG COMBO RFLX [id number] 00:00:00 Test Item Value Reference Range Interpretation Comments HIV 1/2 4TH GEN, RFLX CONF (test NON-REACTIVE code = 3514) GC AND CHLAMYDIA, AMPLIFIED, [id number] 00:00:00 Test Item Value Reference Range Interpretation Comments GONORRHEA, NAAT (test code = 90682) NEGATIVE CHLAMYDIA, NAAT (test code = 13343) NEGATIVE [id number] 00:00:00 Test Item Value Reference Range Interpretation Comments RPR RESULT (test code = NON-REACTIVE 3501) RPR TITER (test code = 3500) NOT INDIC. TITER [id number] 00:00:00 Test Item Value Reference Range Interpretation Comments RPR RESULT (test code = NON-REACTIVE 3501) RPR TITER (test code = 3500) NOT INDIC. TITER TRICHOMONAS, URINE, [id number] 00:00:00 Test Item Value Reference Range Interpretation Comments TRICHOMONAS, NAAT (test code = NEGATIVE 36074) HIV AB/AG COMBO RFLX [id number] 00:00:00 Test Item Value Reference Range Interpretation Comments HIV 1/2 4TH GEN, RFLX CONF (test NON-REACTIVE code = 3514) GC AND CHLAMYDIA, AMPLIFIED, [id number] 00:00:00 Test Item Value Reference Range Interpretation Comments GONORRHEA, NAAT (test code = 31087) NEGATIVE CHLAMYDIA, NAAT (test code = 02657) NEGATIVE [id number] 00:00:00 Test Item Value Reference Range Interpretation Comments RPR RESULT (test code = NON-REACTIVE 3501) RPR TITER (test code = 3500) NOT INDIC. TITER [id number] 00:00:00 Test Item Value Reference Range Interpretation Comments RPR RESULT (test code = NON-REACTIVE 3501) RPR TITER (test code = 3500) NOT INDIC. TITER TRICHOMONAS, URINE, [id number] 00:00:00 Test Item Value Reference Range Interpretation Comments TRICHOMONAS, NAAT (test code = NEGATIVE 60724) HIV AB/AG COMBO RFLX [id number] 00:00:00 Test Item Value Reference Range Interpretation Comments HIV 1/2 4TH GEN, RFLX CONF (test NON-REACTIVE code = 3514) HIV AB/AG COMBO RFLX [id number] 00:00:00 Test Item Value Reference Range Interpretation Comments HIV 1/2 4TH GEN, RFLX CONF (test NON-REACTIVE code = 3514) GC AND CHLAMYDIA, AMPLIFIED, [id number] 00:00:00 Test Item Value Reference Range Interpretation Comments GONORRHEA, NAAT (test code = 61791) NEGATIVE CHLAMYDIA, NAAT (test code = 99354) NEGATIVE GC AND CHLAMYDIA, AMPLIFIED, [id number] 00:00:00 Test Item Value Reference Range Interpretation Comments GONORRHEA, NAAT (test code = 65188) NEGATIVE CHLAMYDIA, NAAT (test code = 53585) NEGATIVE [id number] 00:00:00 Test Item Value Reference Range Interpretation Comments RPR RESULT (test code = NON-REACTIVE 3501) RPR TITER (test code = 3500) NOT INDIC. TITER [id number] 00:00:00 Test Item Value Reference Range Interpretation Comments RPR RESULT (test code = NON-REACTIVE 3501) RPR TITER (test code = 3500) NOT INDIC. TITER [id number] 00:00:00 Test Item Value Reference Range Interpretation Comments RPR RESULT (test code = NON-REACTIVE 3501) RPR TITER (test code = 3500) NOT INDIC. TITER TRICHOMONAS, URINE, [id number] 00:00:00 Test Item Value Reference Range Interpretation Comments TRICHOMONAS, NAAT (test code = NEGATIVE 70822) TRICHOMONAS, URINE, [id number] 00:00:00 Test Item Value Reference Range Interpretation Comments TRICHOMONAS, NAAT (test code = NEGATIVE 18970) PAP TEST, THINPREP, [id number] 00:00:00 Test Item Value Reference Range Interpretation Comments SOURCE: (test code = Cervical/Endocervical 8001) SLIDES: (test code = 1 8011) LMP: (test code = 08/2017 8021) SPECIMEN ADEQUACY: (NOTE) (test code = 67576) INTERPRETATION: (test NO EPITHELIAL code = 41668) ABNORMALITY SEE BELOW OTHER COMMENTS: (test (NOTE) code = 8081) CLOTH SHRINKING MACHINE OPERATOR: Khushi (test code = 8101) ELIE Evangelista(ASCP)CT(IAC) LOCATION: (test code (NOTE) = 83764) CPT: (test code = (NOTE) 8140) PAP TEST, THINPREP, [id number] 00:00:00 Test Item Value Reference Range Interpretation Comments SOURCE: (test code = Cervical/Endocervical 8001) SLIDES: (test code = 1 8011) LMP: (test code = 08/2017) SPECIMEN ADEQUACY: (NOTE) (test code = 13571) INTERPRETATION: (test NO EPITHELIAL code = 45649) ABNORMALITY SEE BELOW OTHER COMMENTS: (test (NOTE) code = 8081) CLOTH SHRINKING MACHINE OPERATOR: Khushi (test code = 8101) TonjaSCT(ASCP)CT(IAC) LOCATION: (test code (NOTE) = 67197) CPT: (test code = (NOTE) 8140) PAP TEST, THINPREP, [id number] 00:00:00 Test Item Value Reference Range Interpretation Comments SOURCE: (test code = Cervical/Endocervical 8001) SLIDES: (test code = 1 8011) LMP: (test code = 08/2017) SPECIMEN ADEQUACY: (NOTE) (test code = 73483) INTERPRETATION: (test NO EPITHELIAL code = 89358) ABNORMALITY SEE BELOW OTHER COMMENTS: (test (NOTE) code = 8081) CLOTH SHRINKING MACHINE OPERATOR: Khushi (test code = 8101) TonjaSCT(ASCP)CT(IAC) LOCATION: (test code (NOTE) = 38709) CPT: (test code = (NOTE) 8140) PAP TEST, THINPREP, [id number] 00:00:00 Test Item Value Reference Range Interpretation Comments SOURCE: (test code = Cervical/Endocervical 8001) SLIDES: (test code = 1 8011) LMP: (test code = 08/2017) SPECIMEN ADEQUACY: (NOTE) (test code = 31976) INTERPRETATION: (test NO EPITHELIAL code = 70790) ABNORMALITY SEE BELOW OTHER COMMENTS: (test (NOTE) code = 8081) CLOTH SHRINKING MACHINE OPERATOR: Khushi (test code = 8101) TonjaSCT(ASCP)CT(IAC) LOCATION: (test code (NOTE) = 41665) CPT: (test code = (NOTE) 8140) PAP TEST, THINPREP, [id number] 00:00:00 Test Item Value Reference Range Interpretation Comments SOURCE: (test code = Cervical/Endocervical 8001) SLIDES: (test code = 1 8011) LMP: (test code = 08/2017 8021) SPECIMEN ADEQUACY: (NOTE) (test code = 62130) INTERPRETATION: (test NO EPITHELIAL code = 95023) ABNORMALITY SEE BELOW OTHER COMMENTS: (test (NOTE) code = 8081) CLOTH SHRINKING MACHINE OPERATOR: Khushi (test code = 8101) TonjaSCT(ASCP)CT(IAC) LOCATION: (test code (NOTE) = 47439) CPT: (test code = (NOTE) 8140) PAP TEST, THINPREP, [id number] 00:00:00 Test Item Value Reference Range Interpretation Comments SOURCE: (test code = Cervical/Endocervical 8001) SLIDES: (test code = 1 8011) LMP: (test code = 08/2017 8021) SPECIMEN ADEQUACY: (NOTE) (test code = 87131) INTERPRETATION: (test NO EPITHELIAL code = 64626) ABNORMALITY SEE BELOW OTHER COMMENTS: (test (NOTE) code = 8081) CLOTH SHRINKING MACHINE OPERATOR: Khushi (test code = 8101) ELIE Evangelista(ASCP)CT(IAC) LOCATION: (test code (NOTE) = 10855) CPT: (test code = (NOTE) 8140) HPV HIGH RISK WITH GENOTYPE, [id number] 00:00:00 Test Item Value Reference Range Interpretation Comments HPV HIGH RISK INTERP (test code = NEGATIVE 08443) HPV 16 (test code = 76819) NEGATIVE HPV 18 (test code = 98626) NEGATIVE HPV, HR, OTHER GENOTYPES (test code NEGATIVE = 75597) HPV HIGH RISK WITH GENOTYPE, [id number] 00:00:00 Test Item Value Reference Range Interpretation Comments HPV HIGH RISK INTERP (test code = NEGATIVE 87872) HPV 16 (test code = 37234) NEGATIVE HPV 18 (test code = 47204) NEGATIVE HPV, HR, OTHER GENOTYPES (test code NEGATIVE = 88013) HPV HIGH RISK WITH GENOTYPE, [id number] 00:00:00 Test Item Value Reference Range Interpretation Comments HPV HIGH RISK INTERP (test code = NEGATIVE 63504) HPV 16 (test code = 41020) NEGATIVE HPV 18 (test code = 11874) NEGATIVE HPV, HR, OTHER GENOTYPES (test code NEGATIVE = 58300) HPV HIGH RISK WITH GENOTYPE, [id number] 00:00:00 Test Item Value Reference Range Interpretation Comments HPV HIGH RISK INTERP (test code = NEGATIVE 14476) HPV 16 (test code = 90984) NEGATIVE HPV 18 (test code = 84967) NEGATIVE HPV, HR, OTHER GENOTYPES (test code NEGATIVE = 64051) HPV HIGH RISK WITH GENOTYPE, [id number] 00:00:00 Test Item Value Reference Range Interpretation Comments HPV HIGH RISK INTERP (test code = NEGATIVE 81716) HPV 16 (test code = 23832) NEGATIVE HPV 18 (test code = 12135) NEGATIVE HPV, HR, OTHER GENOTYPES (test code NEGATIVE = 97113) HPV HIGH RISK WITH GENOTYPE, [id number] 00:00:00 Test Item Value Reference Range Interpretation Comments HPV HIGH RISK INTERP (test code = NEGATIVE 24687) HPV 16 (test code = 33987) NEGATIVE HPV 18 (test code = 32039) NEGATIVE HPV, HR, OTHER GENOTYPES (test code NEGATIVE = 32981)
[2022-04-17] MEDS ORDERED: ONDANSETRON 4 MG/2 ML VIAL ONE (21:24)
[2022-04-17] MEDS ORDERED: MORPHINE 2 MG/ML SYR ONE (21:24)
[2022-04-17] MEDS ORDERED: LEVETIRACETAM 500 MG/5 ML VIAL IV ONE (21:24)
[2022-04-17] MEDS ORDERED: NA CHLORIDE 0.9% 1,000 ML ONE (21:25)
[2022-04-17] MEDS ORDERED: NA CHLORIDE 0.9% 100 ML ONE (21:25)
[2022-04-17 21:26] LABS: Absolute Lymphocytes (CBC) 2.5 K/uL (0.7-4.9); Hematocrit 39.7 % (36.0-45.0); Lymphocytes % 20.5 % (15.3-44.8); MCV 90.6 fL (80-100); RBC Red Blood Cell Count 4.38 M/uL (3.86-4.86)
--- NOTE | 2022-04-17 21:37 | RAD REPORT ---
EXAM DESCRIPTION: RAD - Chest Single View - 04/17/2022 9:33 pm CLINICAL HISTORY: COUGH COMPARISON: No comparisons FINDINGS: Lines: None. Lungs: No evidence of edema or pneumonia. Pleural: No significant pleural effusions or pneumothorax. Cardiac: The heart size is within normal limits. Mediastinum: Within normal limits. Bones: No acute fractures. Other: None IMPRESSION: No acute cardiopulmonary disease.
[2022-04-17 21:55] LABS: Potassium 4.1 mmol/L (3.5-5.1)
[2022-04-17 22:01] LABS: SARS-COV-2 RT PCR NEGATIVE (NEGATIVE)
--- NOTE | 2022-04-17 22:02 | RAD REPORT ---
EXAM DESCRIPTION: CT - Head Brain Wo Cont - 04/17/2022 9:50 pm CLINICAL HISTORY: head injury COMPARISON: Head Brain Wo Cont dated 07/12/2016 TECHNIQUE: All CT scans are performed using dose optimization technique as appropriate and may inclu de automated exposure control or mA/KV adjustment according to patient size. FINDINGS: No intracranial hemorrhage, hydrocephalus or extra-axial fluid collection.No areas of brai n edema or evidence of midline shift. Right parietal scalp hematoma. The paranasal sinuses and mastoids are clear. The calvarium is intact. IMPRESSION: No acute intracranial abnormality. Right parietal scalp hematoma. No skull fracture.
[2022-04-17 22:40] LABS: Urine Blood Negative (Negative); Urine Glucose Negative (Negative); Urine Protein Trace (Negative); Urine Specific Gravity 1.025 (1.005-1.030)
--- NOTE | 2022-04-17 22:57 | EDPHYS ---
Physician Documentation [facility] Name: Elsie Lobo Age: 36 yrs Sex: Female : 1985 Arrival Date: 04/17/2022 Time: 20:52 Bed 4 Private MD: ED Physician Marshall Valdovinos HPI: 04/17 21:40 This 36 yrs old Female presents to ER via EMS with complaints of seizure. rn 21:40 The patient presents after having a single isolated seizure. Seizure onset: just prior rn to arrival. Context: the seizure(s) was witnessed, by a bystander. Seizure Hx: Seizure medications: Keppra. Associated injury: Head/face: contusion, swelling, tenderness. Current symptoms: headache. The patient has experienced similar episodes in the past. The patient has not recently seen a physician. Pt reports known seizure disorder, ran out of keppra a couple of weeks ago, was at work, had witnessed seizure, approx 3 minutes, reports pain and swelling to right scalp. NO other injuries. Reports minor cough recently. . - Immunization history:: Client reports receiving the 2nd dose of the Covid vaccine. - Social history:: Smoking status: Patient denies any tobacco usage or history of. - Family history:: not pertinent. - Hospitalizations: : No recent hospitalization is reported. ROS: 21:40 Constitutional: Negative for fever, chills, and weight loss, Eyes: Negative for injury, rn pain, redness, and discharge, Neck: Negative for injury, pain, and swelling, Cardiovascular: Negative for chest pain, palpitations, and edema, Respiratory: Negative for shortness of breath, wheezing, and pleuritic chest pain, Abdomen/GI: Negative for abdominal pain, nausea, vomiting, diarrhea, and constipation, MS/Extremity: Negative for injury and deformity, Skin: Negative for injury, rash, and discoloration, Neuro: Negative for weakness, numbness, tingling Exam: 21:41 Constitutional: This is a well developed, well nourished patient who is awake, alert, rn and in no acute distress. Texting on phone. Head/Face: Normocephalic, 3 cm hematoma right temporal scalp Eyes: Pupils equal round and reactive to light, extra-ocular motions intact. Neck: No midline tenderness Chest/axilla: Normal chest wall appearance and motion. Nontender with no deformity. No lesions are appreciated. Cardiovascular: Tachycardic, regular. No pulse deficits. Respiratory: No increased work of breathing, no retractions or nasal flaring. Abdomen/GI: Soft, non-tender Skin: Warm, dry with normal turgor. Normal color with no rashes, no lesions, and no evidence of cellulitis. MS/ Extremity: Pulses equal, no cyanosis. Neurovascular intact. Full, normal range of motion. Equal circumference. Neuro: Awake and alert, GCS 15, oriented to person, place, time, and situation. Cranial nerves II-XII grossly intact. Motor strength 5/5 in all extremities. Sensory grossly intact. 21:43 ECG was reviewed by the Attending Physician. rn Vital Signs: 20:54 BP 153 / 85; Pulse 106; Resp 19 S; Pulse Ox 100% on R/A; Weight 79.38 kg (R); Height 5 aa9 ft. 5 in. (165.10 cm) (R); Pain 7/10; 20:57 BP 124 / 81; Pulse 109; Resp 19; Pulse Ox 100% on R/A; aa9 21:30 BP 130 / 102; Pulse 97; Resp 17; Pulse Ox 100% ; vc1 23:00 BP 132 / 102; Pulse 89; Resp 18; Pulse Ox 97% ; vc1 20:54 Body Mass Index 29.12 (79.38 kg, 165.10 cm) aa9 MDM: 20:52 Patient medically screened. rn 22:55 Differential diagnosis: seizure. Data reviewed: vital signs, nurses notes, lab test rn result(s), EKG, radiologic studies, CT scan, and as a result, I will discharge patient. Independent interpretation of the following test(s) in the Emergency Department EKG: See my EKG interpretation above X-Ray: My interpretation is CXR neg for pneumonia. Counseling: I had a detailed discussion with the patient and/or guardian regarding: the historical points, exam findings, and any diagnostic results supporting the discharge/admit diagnosis, lab results, radiology results, the need for outpatient follow up, to return to the emergency department if symptoms worsen or persist or if there are any questions or concerns that arise at home. Response to treatment: the patient's symptoms have markedly improved after treatment, the patient's condition has returned to base line, the patient is now symptom free, and as a result, I will discharge patient. Special discussion: I discussed with the patient/guardian in detail that at this point there is no indication for admission to the hospital. It is understood, however, that if the symptoms persist or worsen the patient needs to return immediately for re-evaluation. Based on the history and exam findings, there is no indication for further emergent testing or inpatient evaluation. I discussed with the patient/guardian the need to see the neurologist for further evaluation of the symptoms. 04/17 20:53 Order name: CBC with Diff; Complete Time: 22:15 rn 04/17 20:53 Order name: Basic Metabolic Panel; Complete Time: 22:15 rn 04/17 20:53 Order name: Urine Microscopic Only rn 04/17 20:53 Order name: COVID-19/FLU A+B; Complete Time: :15 rn 04/17 20:53 Order name: XRAY Chest (1 view); Complete Time: 22:15 rn 04/17 22:40 Order name: Urine Dipstick-Ancillary; Complete Time: 22:55 EDMS 04/17 20:53 Order name: IV Start; Complete Time: 21:25 rn 04/17 20:53 Order name: EKG; Complete Time: 20:54 rn 04/17 21:18 Order name: CT Head Brain wo Cont; Complete Time: :15 rn 04/17 20:53 Order name: EKG - Nurse/Tech; Complete Time: 21:41 rn EC:43 Rate is 91 beats/min. Rhythm is regular. QRS [place] is Normal. ID interval is normal. QRS rn interval is normal. QT interval is normal. No Q waves. T waves are Normal. No ST changes noted. Clinical impression: NSR w/ Non-specific ST/T Changes. Interpreted by me. Reviewed by me. Administered Medications: 21:40 Drug: NS 0.9% 1000 ml Route: IV; Rate: 1000 ml; Site: right antecubital; vc1 21:40 Drug: morphine 2 mg Route: IVP; Infused Over: 4 mins; Site: right antecubital; vc1 21:41 Drug: Zofran (Ondansetron) 4 mg Route: IVP; Site: right antecubital; vc1 21:45 Drug: Keppra (levETIRAcetam) 1000 mg Route: IV; Rate: calculated rate; Site: right vc1 antecubital; Disposition Summary: 04/17/22 22:56 Discharge Ordered Location: Home rn Problem: an ongoing problem rn Symptoms: have improved rn Condition: Stable rn Diagnosis - Epileptic seizures related to external causes, not intractable, without status rn epilepticus Followup: rn - With: Private Physician - When: As needed - Reason: Recheck today's complaints, Re-evaluation by your physician Discharge Instructions: - Discharge Summary Sheet rn - Epilepsy rn - Seizure, Adult rn Forms: - Medication Reconciliation Form rn - Thank You Letter rn - Antibiotic software development intern - Prescription Opioid Use rn Prescriptions: - Keppra 500 mg Oral Tablet - take 2 tablet by ORAL route every 12 hours; 120 tablet; Refills: 0, Product rn Selection Permitted Signatures: Dispatcher [employer] EDMS Marshall Valdovinos MD MD rn Calcote, Vanessa RN RN vc1 Mercedes Edmond, RN RN aa9 Corrections: (The following items were deleted from the chart) 21:42 21:40 Constitutional: Negative for fever, chills, and weight loss, Eyes: Negative for rn injury, pain, redness, and discharge, Neck: Negative for injury, pain, and swelling, Cardiovascular: Negative for chest pain, palpitations, and edema, Respiratory: Negative for shortness of breath, wheezing, and pleuritic chest pain, rn
--- NOTE | 2022-04-17 22:57 | ER ---
Nurse's Notes [facility] Name: Elsie Lobo Age: 36 yrs Sex: Female : 1985 Arrival Date: 04/17/2022 Time: 20:52 Bed 4 Private MD: Diagnosis: Epileptic seizures related to external causes, not intractable, without status epilepticus Presentation: 04/17 20:54 Chief complaint: EMS states: toned out for a 36 F, bystander reported "Her eyes rolled aa9 to the back of her head then she fell to the ground." pt confused on scene, pt reports to have stopped taking Keppra a few months ago, stable en route. Coronavirus screen: Vaccine status: Patient reports receiving the 2nd dose of the covid vaccine. Ebola Screen: No symptoms or risks identified at this time. Initial Sepsis Screen: Does the patient meet any 2 criteria? No. Patient's initial sepsis screen is negative. Does the patient have a suspected source of infection? No. Patient's initial sepsis screen is negative. Risk Assessment: Do you want to hurt yourself or someone else? Patient reports no desire to harm self or others. Onset of symptoms was April 17, 2022. 20:54 Method Of Arrival: EMS: [facility] aa9 20:54 Acuity: ALFA 3 aa9 Triage Assessment: 20:57 General: Appears comfortable, Behavior is cooperative, anxious. Pain: Complains of pain aa9 in Right side of head Pain does not radiate. Pain currently is 7 out of 10 on a pain scale. Also complains of nausea. Neuro: Level of Consciousness is awake, alert, obeys commands, Oriented to person, place, time, situation. Cardiovascular: Patient's skin is warm and dry. Respiratory: Airway is patent Respiratory effort is even, unlabored. GI: Reports nausea. : No deficits noted. Derm: Bruising that is dark purple, on right side of head. Musculoskeletal: small goose egg on the right side of head. - Immunization history:: Client reports receiving the 2nd dose of the Covid vaccine. - Social history:: Smoking status: Patient denies any tobacco usage or history of. - Family history:: not pertinent. - Hospitalizations: : No recent hospitalization is reported. Screenin:03 Abuse screen: Denies threats or abuse. Denies injuries from another. aa9 21:43 Nutritional screening: No deficits noted. Tuberculosis screening: No symptoms or risk vc1 factors identified. 21:45 [facility] ED Fall Risk Assessment (Adult) History of falling in the last 3 months, vc1 including since admission Yes- physiologic fall (2 pts) Confusion or Disorientation No (0 pts) Intoxicated or Sedated No (0 pts) Impaired Gait No (0 pts) Mobility Assist Device Used No (0 pt) Altered Elimination No (0 pt) Score/Fall Risk Level 0 - 2 = Low Risk Oriented to surroundings, Maintained a safe environment. Assessment: 23:00 Reassessment: No changes from previously documented assessment. Patient and/or family vc1 updated on plan of care and expected duration. Pain level reassessed. Patient states feeling better. Vital Signs: 20:54 BP 153 / 85; Pulse 106; Resp 19 S; Pulse Ox 100% on R/A; Weight 79.38 kg (R); Height 5 aa9 ft. 5 in. (165.10 cm) (R); Pain 7/10; 20:57 BP 124 / 81; Pulse 109; Resp 19; Pulse Ox 100% on R/A; aa9 21:30 BP 130 / 102; Pulse 97; Resp 17; Pulse Ox 100% ; vc1 23:00 BP 132 / 102; Pulse 89; Resp 18; Pulse Ox 97% ; vc1 20:54 Body Mass Index 29.12 (79.38 kg, 165.10 cm) aa9 ED Course: 20:52 Patient arrived in ED. rn 20:52 Marshall Valdovinos MD is Attending Physician. rn 20:56 Triage completed. aa9 21:03 Arm band placed on. aa9 21:15 No provider procedures requiring assistance completed. Inserted saline lock: 20 gauge vc1 in right antecubital area, using aseptic technique. Blood collected. 21:25 COVID-19/FLU A+B Sent. vc1 21:35 XRAY Chest (1 view) In Process Unspecified. EDMS 21:42 Beverly Lloyd, JEISON is Primary Nurse. vc1 21:46 Patient has correct armband on for positive identification. Bed in low position. Call vc1 light in reach. Pulse ox on. NIBP on. 21:52 CT Head Brain wo Cont In Process Unspecified. EDMS 23:22 IV discontinued, intact, bleeding controlled, No redness/swelling at site. Pressure vc1 dressing applied. Administered Medications: 21:40 Drug: NS 0.9% 1000 ml Route: IV; Rate: 1000 ml; Site: right antecubital; vc1 21:40 Drug: morphine 2 mg Route: IVP; Infused Over: 4 mins; Site: right antecubital; vc1 21:41 Drug: Zofran (Ondansetron) 4 mg Route: IVP; Site: right antecubital; vc1 21:45 Drug: Keppra (levETIRAcetam) 1000 mg Route: IV; Rate: calculated rate; Site: right vc1 antecubital; Medication: 21:43 VIS not applicable for this client. vc1 Outcome: 22:56 Discharge ordered by MD. rn 23:21 Discharged to home ambulatory, with friend. vc1 23:21 Condition: stable 23:21 Discharge instructions given to patient, Instructed on discharge instructions, follow up and referral plans. medication usage, Demonstrated understanding of instructions, follow-up care, medications, Prescriptions given X 1. 23:22 Patient left the ED. vc1 Signatures: Dispatcher [employer] EDMarshall Huntley MD MD rn Calcote, Vanessa, RN RN vc1 Mercedes Edmond RN RN aa9
[2022-04-17 23:03] LABS: Urine Bacteria None Seen /HPF (<20); Urine Mucus Slight /HPF (None Seen); Urine RBC <5 /HPF (None Seen)
[2022-04-17 23:49] VITALS: BP 132/102; O2SAT 97
== END 2022-04-17 23:22 | disposition home or self-care (01) ==
LOC: ER 20:45
DX: G40.509 Epileptic seizures related to external causes, not intractable, without status epilepticus (principal); S00.03XA Contusion of scalp, initial encounter; Z20.822 Contact with and (suspected) exposure to COVID-19
CPT/HCPCS: 85025; 80048; 36415; 0240U; 70450; 71045; 96375; 96374; 99284; J2270; J1953; J7030; J2405; 81003; 81015; 93005

== ENCOUNTER 2023-02-15 15:27 | Emergency (ER) | payer OTHER ==
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
--- OUTSIDE RECORDS SUMMARY | 2023-02-15 15:31 | XMS REPORT | Continuity of Care Document ---
Author Name Unknown Address [address] [facility] [address] [place] [address] [facility] Address [address] [facility] [address] [place] [address] Care Team Providers Care Lung Splitter Name Role Phone Hali Clark Primary Care Physician [phone] Medications Ordered Medication Name Filled Medication Name Start Date Stop Date Current Medication? Ordering Clinician Indication Dosage Frequency Signature (SIG) Comments Components Source Dose Unknown 2021-0 8-12 00:00: 00 No Dose Unknown 2021-0 8-12 00:00: 00 No Dose Unknown 2021-0 8-08 00:00: 00 No 20 Dose Unknown 2021-0 8-08 00:00: 00 No 5 &lt 2022-0 8-05 00:00: 00 No 40 &lt 2022-0 8-04 00:00: 00 No 400 TAKE 1 CAPSULE BY MOUTH ONCE DAILY 2021-0 8-04 00:00: 00 No 20 Dose Unknown 2022-0 8-04 00:00: 00 No 40 Dose Unknown 2022-0 8-04 00:00: 00 No 25 Dose Unknown 2022-0 8-04 00:00: 00 No 5 TAKE 1 CAPSULE BY MOUTH ONCE DAILY 2-0 8-04 00:00: 00 No 20 &lt 2022-0 8-04 00:00: 00 No 40 &lt 2022-0 8-04 00:00: 00 No 400 Dose Unknown 2022-0 8-04 00:00: 00 No 1000 Dose Unknown 2022-0 8-04 00:00: 00 No 40 Dose Unknown 2022-0 8-04 00:00: 00 No 5 Dose Unknown 2022-0 8-04 00:00: 00 No 20 &lt 2022-0 8-04 00:00: 00 No 400 TAKE 1 CAPSULE BY MOUTH ONCE DAILY 2022-0 8-04 00:00: 00 No 20 Dose Unknown 2022-0 8-04 00:00: 00 No 40 Dose Unknown 2022-0 8-04 00:00: 00 No 25 Dose Unknown 2022-0 8-04 00:00: 00 No 5 TAKE 1 CAPSULE BY MOUTH ONCE DAILY 2022-0 8-04 00:00: 00 No 20 &lt 2022-0 8-04 00:00: 00 No 40 &lt 2022-0 8-04 00:00: 00 No 400 Dose Unknown 2022-0 8-04 00:00: 00 No 1000 Dose Unknown 2022-0 8-04 00:00: 00 No 40 Dose Unknown 2022-0 8-04 00:00: 00 No 5 Dose Unknown 2022-0 8-04 00:00: 00 No 20 Dose Unknown 2022-0 8- 00:00: 00 No 1000 Dose Unknown 2022-0 8- 00:00: 00 No 1000 &lt 2022-0 7- 00:00: 00 No 20 &lt 2022-0 7 00:00: 00 No 20 &lt 2022-0 7 00:00: 00 No 20 &lt 2022-0 7- 00:00: 00 No 1000 &lt 2022-0 7 00:00: 00 No 50 &lt 2022-0 7 00:00: 00 No 40 TAKE 1 TO 2 TABLETS BY MOUTH NIGHTLY NEEDED 2022-0 7 00:00: 00 No 50 Dose Unknown 2022-0 7 00:00: 00 No 5 &lt 2022-0 7- 00:00: 00 No 1000 &lt 2022-0 7 00:00: 00 No 50 &lt 2022-0 7 00:00: 00 No 40 TAKE 1 TO 2 TABLETS BY MOUTH NIGHTLY NEEDED 2022-0 7 00:00: 00 No 50 Dose Unknown 2022-0 7 00:00: 00 No 5 &lt 2022-0 7- 00:00: 00 No 1000 &lt 2022-0 7- 00:00: 00 No 50 &lt 2022-0 7 00:00: 00 No 40 TAKE 1 TO 2 TABLETS BY MOUTH NIGHTLY NEEDED 2021-0 10-03 00:00: 00 No 50 Dose Unknown 2021-0 10-03 00:00: 00 No 5 Dose Unknown 0 10-01 00:00: 00 No 5 &lt 2022-0 10-01 00:00: 00 No 1000 TAKE 1 CAPSULE BY MOUTH ONCE DAILY 2021-0 10-01 00:00: 00 No 20 &lt 2022-0 10-01 00:00: 00 No 5 Dose Unknown 2021-0 10-01 00:00: 00 No 25 Keppra 1,000 mg tablet 0 10-01 00:00: 00 No 1mg Dose Unknown 0 10-01 00:00: 00 No 5 &lt 2-0 10-01 00:00: 00 No 1000 TAKE 1 CAPSULE BY MOUTH ONCE DAILY 0 10-01 00:00: 00 No 20 &lt 2021-0 10-01 00:00: 00 No 5 Dose Unknown 0 10-01 00:00: 00 No 25 Keppra 1,000 mg tablet 0 10-01 00:00: 00 No 1mg Dose Unknown 0 10-01 00:00: 00 No 5 &lt 2021-0 10-01 00:00: 00 No 1000 TAKE 1 CAPSULE BY MOUTH ONCE DAILY 0 10-01 00:00: 00 No 20 &lt 2021-0 10-01 00:00: 00 No 5 Dose Unknown 0 10-01 00:00: 00 No 25 Keppra 1,000 mg tablet 0 10-01 00:00: 00 No 1mg Dose Unknown 0 10-01 00:00: 00 No 5 &lt 2-0 10-01 00:00: 00 No 1000 TAKE 1 CAPSULE BY MOUTH ONCE DAILY 0 10-01 00:00: 00 No 20 &lt 2-0 10-01 00:00: 00 No 5 Dose Unknown 0 10-01 00:00: 00 No 25 trazodone 50 mg tablet 2021-0 09-30 00:00: 00 No 12mg fluoxetine 40 mg capsule 2021-0 09-30 00:00: 00 No 1mg trazodone 50 mg tablet 0 7- 00:00: 00 No 12mg fluoxetine 40 mg capsule 2-0 7 00:00: 00 No 1mg trazodone 50 mg tablet 2-0 7 00:00: 00 No 12mg fluoxetine 40 mg capsule 2-0 7 00:00: 00 No 1mg trazodone 50 mg tablet 2-0 7 00:00: 00 No 12mg fluoxetine 40 mg capsule 2-0 09-30 00:00: 00 No 1mg &lt 2022-0 7- 00:00: 00 No 20 &lt 2022-0 7- 00:00: 00 No 20 &lt 2022-0 7- 00:00: 00 No 20 &lt 2022-0 7- 00:00: 00 No 20 &lt 2022-0 7-14 00:00: 00 No 5 &lt 2022-0 7-14 00:00: 00 No 1000 &lt 2022-0 7-14 00:00: 00 No 5 &lt 2022-0 7-14 00:00: 00 No 1000 &lt 2022-0 7-14 00:00: 00 No 5 &lt 2022-0 7-14 00:00: 00 No 1000 &lt 2022-0 7-14 00:00: 00 No 5 &lt 2022-0 7-14 00:00: 00 No 1000 hydroxyzine HCl 10 mg tablet 2-0 7- 00:00: 00 No 1mg trazodone 50 mg tablet 2-0 7- 00:00: 00 No 1mg fluoxetine 40 mg capsule 2-0 7- 00:00: 00 No 1mg hydroxyzine HCl 10 mg tablet 2-0 7- 00:00: 00 No 1mg trazodone 50 mg tablet 2-0 7- 00:00: 00 No 1mg fluoxetine 40 mg capsule 2-0 7- 00:00: 00 No 1mg hydroxyzine HCl 10 mg tablet 2-0 7- 00:00: 00 No 1mg trazodone 50 mg tablet 2-0 7- 00:00: 00 No 1mg fluoxetine 40 mg capsule 2-0 7- 00:00: 00 No 1mg hydroxyzine HCl 10 mg tablet 2-0 7- 00:00: 00 No 1mg trazodone 50 mg tablet 2-0 7- 00:00: 00 No 1mg fluoxetine 40 mg capsule 2-0 7- 00:00: 00 No 1mg &lt 2022-0 7- 00:00: 00 No 25 &lt 2022-0 7- 00:00: 00 No 25 &lt 2022-0 7- 00:00: 00 No 25 &lt 2022-0 7- 00:00: 00 No 25 TAKE 1 CAPSULE BY MOUTH ONCE DAILY 2022-0 7- 00:00: 00 No 20 TAKE 1 CAPSULE BY MOUTH ONCE DAILY 2022-0 7- 00:00: 00 No 20 TAKE 1 CAPSULE BY MOUTH ONCE DAILY 2022-0 7- 00:00: 00 No 20 TAKE 1 CAPSULE BY MOUTH ONCE DAILY 2022-0 7- 00:00: 00 No 20 &lt 2022-0 6- 00:00: 00 No &lt 2022-0 6 00:00: 00 No &lt 2022-0 6 00:00: 00 No &lt 2022-0 6 00:00: 00 No Dose Unknown 2022-0 6 00:00: 00 No Dose Unknown 2022-0 6 00:00: 00 No Dose Unknown 2022-0 6 00:00: 00 No Dose Unknown 2022-0 6 00:00: 00 No &lt 2022-0 6 00:00: 00 No TAKE 1 CAPSULE BY MOUTH ONCE DAILY 2-0 6 00:00: 00 No &lt 2022-0 6 00:00: 00 No Dose Unknown 2022-0 09-01 00:00: 00 No Dose Unknown 2022-0 6 00:00: 00 No sumatriptan 25 mg tablet 2-0 09-01 00:00: 00 No 1mg Keppra 1,000 mg tablet 2021-0 09-01 00:00: 00 No 1mg acyclovir 400 mg tablet 2021-0 09-01 00:00: 00 No 1mg Dose Unknown 2-0 09-01 00:00: 00 No Dose Unknown 2022-0 09-01 00:00: 00 No &lt 2022-0 09-01 00:00: 00 No Dose Unknown 2022-0 09-01 00:00: 00 No TAKE 1 CAPSULE BY MOUTH ONCE DAILY 2022-0 09-01 00:00: 00 No &lt 2022-0 09-01 00:00: 00 No Dose Unknown 2022-0 09-01 00:00: 00 No Dose Unknown 2022-0 09-01 00:00: 00 No Dose Unknown 2022-0 09-01 00:00: 00 No Dose Unknown 2022-0 09-01 00:00: 00 No Dose Unknown 2022-0 09-01 00:00: 00 No Dose Unknown 2022-0 09-01 00:00: 00 No Dose Unknown 2022-0 09-01 00:00: 00 No Dose Unknown 2022-0 09-01 00:00: 00 No Dose Unknown 2022-0 09-01 00:00: 00 No Dose Unknown 2022-0 09-01 00:00: 00 No Dose Unknown 2022-0 09-01 00:00: 00 No sumatriptan 25 mg tablet 2-0 09-01 00:00: 00 No 1mg Keppra 1,000 mg tablet 2-0 09-01 00:00: 00 No 1mg acyclovir 400 mg tablet 2-0 09-01 00:00: 00 No 1mg Dose Unknown 2-0 09-01 00:00: 00 No Dose Unknown 2-0 09-01 00:00: 00 No &lt 2022-0 09-01 00:00: 00 No TAKE 1 CAPSULE BY MOUTH ONCE DAILY 2-0 09-01 00:00: 00 No &lt 2022-0 09-01 00:00: 00 No Dose Unknown 2022-0 09-01 00:00: 00 No Dose Unknown 2022-0 09-01 00:00: 00 No Dose Unknown 2022-0 09-01 00:00: 00 No Dose Unknown 2022-0 09-01 00:00: 00 No Dose Unknown 2022-0 09-01 00:00: 00 No Dose Unknown 2022-0 09-01 00:00: 00 No Dose Unknown 2022-0 09-01 00:00: 00 No sumatriptan 25 mg tablet 2022-0 09-01 00:00: 00 No 1mg Keppra 1,000 mg tablet 2-0 09-01 00:00: 00 No 1mg acyclovir 400 mg tablet 2-0 09-01 00:00: 00 No 1mg Dose Unknown 2-0 09-01 00:00: 00 No Dose Unknown 2022-0 09-01 00:00: 00 No &lt 2022-0 09-01 00:00: 00 No TAKE 1 CAPSULE BY MOUTH ONCE DAILY 2-0 09-01 00:00: 00 No &lt 2022-0 09-01 00:00: 00 No Dose Unknown 2-0 09-01 00:00: 00 No Dose Unknown 2-0 09-01 00:00: 00 No Dose Unknown 2-0 09-01 00:00: 00 No Dose Unknown 2021-0 09-01 00:00: 00 No Dose Unknown 2021-0 09-01 00:00: 00 No Dose Unknown 2021-0 09-01 00:00: 00 No Dose Unknown 2-0 09-01 00:00: 00 No sumatriptan 25 mg tablet 2-0 09-01 00:00: 00 No 1mg Keppra 1,000 mg tablet 2021-0 09-01 00:00: 00 No 1mg acyclovir 400 mg tablet 2-0 09-01 00:00: 00 No 1mg sumatriptan 25 mg tablet 2-0 09-01 00:00: 00 No 1mg Keppra 1,000 mg tablet 2-0 09-01 00:00: 00 No 1mg acyclovir 400 mg tablet 2021-0 09-01 00:00: 00 No 1mg Dose Unknown 2021-0 09-01 00:00: 00 No Dose Unknown 2021-0 09-01 00:00: 00 No Dose Unknown 2-0 09-01 00:00: 00 No &lt 2022-0 09-01 00:00: 00 No TAKE 1 CAPSULE BY MOUTH ONCE DAILY 2021-0 09-01 00:00: 00 No &lt 2022-0 09-01 00:00: 00 No Dose Unknown 2-0 09-01 00:00: 00 No Dose Unknown 2021-0 09-01 00:00: 00 No Dose Unknown 0 09-01 00:00: 00 No Dose Unknown 0 09-01 00:00: 00 No Dose Unknown 0 09-01 00:00: 00 No Dose Unknown 0 09-01 00:00: 00 No Dose Unknown 0 09-01 00:00: 00 No Dose Unknown 0 09-01 00:00: 00 No Bromfed DM 2 mg-30 mg-10 mg/5 mL oral syrup 0 07-03 00:00: 00 No 5mg/5 mL Bromfed DM 2 mg-30 mg-10 mg/5 mL oral syrup 0 07-03 00:00: 00 No 5mg/5 mL Bromfed DM 2 mg-30 mg-10 mg/5 mL oral syrup 0 07-03 00:00: 00 No 5mg/5 mL Bromfed DM 2 mg-30 mg-10 mg/5 mL oral syrup 0 07-03 00:00: 00 No 5mg/5 mL Bromfed DM 2 mg-30 mg-10 mg/5 mL oral syrup 0 07-03 00:00: 00 No 5mg/5 mL metronidazo le 0.75 % vaginal gel 09-28 00:00: 00 No 1% metronidazo le 0.75 % vaginal gel 09-28 00:00: 00 No 1% metronidazo le 0.75 % vaginal gel 09-28 00:00: 00 No 1% metronidazo le 0.75 % vaginal gel 09-28 00:00: 00 No 1% metronidazo le 0.75 % vaginal gel 09-28 00:00: 00 No 1% Vital Signs Vital Name Observation Time Observation Value Comments S ource BP Systolic 2022-01-16 11:50:00 118 mm[Hg] BP [...] /min Respiratory Rate 2016-05-14 16:46:00 18.00 /min Plan of Care Planned Activity Planned Date Details Comments Source Goal Plan of Care Note [code = 45083-6] Goal Plan of Care Note [code = 49183-1] Goal Plan of Care Note [code = 47912-8] Goal Plan of Care Note [code = 04973-9] Goal Plan of Care Note [code = 45123-5] Goal Plan of Care Note [code = 55271-5] Goal Plan of Care Note [code = 83628-4] Goal Plan of Care Note [code = 27016-0] Goal Plan of Care Note [code = 87861-1] Goal Plan of Care Note [code = 33702-7] Goal Plan of Care Note [code = 70636-7] Goal Plan of Care Note [code = 87302-3] Goal Plan of Care Note [code = 17200-4] Goal Plan of Care Note [code = 28751-2] Goal Plan of Care Note [code = 62057-0] Goal Plan of Care Note [code = 79713-6] Goal Plan of Care Note [code = 58433-1] Goal Plan of Care Note [code = 70651-5] Goal Plan of Care Note [code = 32500-6] Goal Plan of Care Note [code = 15517-8] Goal Plan of Care Note [code = 89800-7] Goal Plan of Care Note [code = 09259-7] Goal Plan of Care Note [code = 36167-6] Goal Plan of Care Note [code = 93927-6] Goal Plan of Care Note [code = 41976-7] Goal Plan of Care Note [code = 30264-1] Goal Plan of Care Note [code = 19024-1] Goal Plan of Care Note [code = 95573-2] Goal Plan of Care Note [code = 42268-8] Goal Plan of Care Note [code = 53069-9] Goal Plan of Care Note [code = 94334-2] Goal Plan of Care Note [code = 34698-9] Goal Plan of Care Note [code = 99028-2] Goal Plan of Care Note [code = 51591-2] Goal Plan of Care Note [code = 94886-8] Goal Plan of Care Note [code = 75921-1] Goal Plan of Care Note [code = 54742-9] Goal Plan of Care Note [code = 68773-2] Goal Plan of Care Note [code = 38140-3] Goal Plan of Care Note [code = 12681-2] Goal Plan of Care Note [code = 33837-4] Goal Plan of Care Note [code = 14484-5] Goal Plan of Care Note [code = 97248-2] Goal Plan of Care Note [code = 19785-9] Goal Plan of Care Note [code = 73594-0] Goal Plan of Care Note [code = 26388-4] Goal Plan of Care Note [code = 47058-4] Goal Plan of Care Note [code = 76426-4] Goal Plan of Care Note [code = 42639-5] Goal Plan of Care Note [code = 20527-6] Goal Plan of Care Note [code = 53455-4] Goal Plan of Care Note [code = 53192-7] Goal Plan of Care Note [code = 28720-1] Goal Plan of Care Note [code = 48117-5] Goal Plan of Care Note [code = 78172-7] Goal Plan of Care Note [code = 37870-5] Goal Plan of Care Note [code = 62544-7] Goal Plan of Care Note [code = 87007-0] Goal Plan of Care Note [code = 82870-8] Goal Plan of Care Note [code = 60865-1] Goal Plan of Care Note [code = 42278-0] Goal Plan of Care Note [code = 95276-3] Goal Plan of Care Note [code = 28666-3] Goal Plan of Care Note [code = 16725-2] Goal Plan of Care Note [code = 68049-2] Goal Plan of Care Note [code = 82039-9] Goal Plan of Care Note [code = 06252-7] Goal Plan of Care Note [code = 75861-9] Goal Plan of Care Note [code = 36835-0] Goal Plan of Care Note [code = 76501-7] Goal Plan of Care Note [code = 11324-3] Goal Plan of Care Note [code = 96333-8] Goal Plan of Care Note [code = 23203-0] Goal Plan of Care Note [code = 67004-1] Goal Plan of Care Note [code = 65220-7] Goal Plan of Care Note [code = 84905-2] Goal Plan of Care Note [code = 99808-5] Goal Plan of Care Note [code = 61971-3] Goal Plan of Care Note [code = 29695-4] Goal Plan of Care Note [code = 24782-5] Goal Plan of Care Note [code = 99690-6] Goal Plan of Care Note [code = 84388-2] Goal Plan of Care Note [code = 33952-0] Goal Plan of Care Note [code = 55413-6] Goal Plan of Care Note [code = 96979-4] Goal Plan of Care Note [code = 84735-7] Goal Plan of Care Note [code = 04496-3] Goal Plan of Care Note [code = 50011-1] Goal Plan of Care Note [code = 48756-3] Goal Plan of Care Note [code = 06885-6] Goal Plan of Care Note [code = 93453-6] Goal Plan of Care Note [code = 75281-5] Goal Plan of Care Note [code = 77328-7] Goal Plan of Care Note [code = 15483-3] Goal Plan of Care Note [code = 67406-0] Goal Plan of Care Note [code = 49519-4] Encounters Start Date/Time End Date/Time Encounter Type Admission Type Attending [facility] Facility Care Department Encounter ID Source 2022-12-24 13:48:37 2022-12-24 13:48:37 Outpatient SFA SFA [id number] Dre Moss 2022-12-17 15:49:48 2022-12-17 15:49:48 Outpatient SFA SFA 1012 rDe Moss 2022-08-24 14:50:55 2022-08-24 14:50:55 Outpatient SFA SFA [id number] Dre Moss 2022-08-19 15:44:30 2022-08-19 15:44:30 Outpatient SFA SFA [id number] Dre Moss 2022-01-26 15:47:59 2022-01-26 15:47:59 Outpatient SFA SFA [id number] Dre Moss 2022-01-16 11:45:20 2022-01-16 11:45:20 Outpatient SFA SFA [id number] Dre Moss 2022-01-16 00:00:00 2022-01-16 00:00:00 Outpatient Visit [id number] 2022-01-15 11:57:54 2022-01-15 11:57:54 Outpatient SFA SFA [id number] Dre Moss 2021-10-09 00:00:00 2021-10-09 00:00:00 Outpatient Visit [id number] 2021-10-03 00:00:00 2021-10-03 00:00:00 Outpatient Visit [id number] 00:00:00 2021-10-01 00:00:00 Outpatient Visit [id number] 00:00:00 2021-09-01 00:00:00 Outpatient Visit [id number] Results Test Description Test Time Test Comments Results Result Co mments Source HEMOGLOBIN [id number] 06:48:13* Test Item Value Reference Range Interpretation Comme nts HEMOGLOBIN A1c (test code = 64503) 5.2 % 4.2-5.6 LIPID [id number] 06:05:16* Test Item Value Reference Range Interpretation Comme nts CHOLESTEROL (test code = 2210) 210 MG/DL <200 H TRIGLYCERIDES (test code = 2232) 278 MG/DL <150 H HDL CHOLESTEROL (test code = 2220) 44 MG/DL >39 CALC LDL CHOL (test code = 2237) 123 MG/DL <100 H NOTE: CALCULATED LDL IS BASED ON MENA-ZARCO METHOD WHICHINCLUDES ADJUSTABLE TRIGLYCERIDE:VLDL CHOLESTEROL RATIO.THIS FACTOR VARIES BY MEASURED TRIGLYCERIDE AND NON-HDLCHOLESTEROL CONCENTRATIONS WITH INCREASED CALCULATED LDL SEENIN HIGHER TRIGLYCERIDE OR LOWER NON-HDL SPECIMENS. FOR MOREINFORMATION, SEE CLIENT ANNOUNCEMENT AT [email or web address] /CalcLDL-C RISK RATIO LDL/HDL (test code = 2238) 2.80 RATIO <3.22 COMPREHENSIVE METABOLIC [id number] 06:05:16* Test Item Value Reference Range Interpretation Comme nts GLUCOSE (test code = 7) 102 MG/DL 70-99 H BUN (test code = 2207) 9 MG/DL 6-20 CREATININE (test code = 221) 1.09 MG/DL 0.60-1.30 eGFR (2020 CKD-EPI) (test code = 58090) 67 ML/MIN/1.73 >60 CALC BUN/CREAT (test code = 2235) 8 RATIO 6-28 SODIUM (test code = 223) 140 MEQ/L 133-146 POTASSIUM (test code = 2228) 4.1 MEQ/L 3.5-5.4 CHLORIDE (test code = 5) 105 MEQ/L 95-107 CARBON DIOXIDE (test code = 2206) 23 MEQ/L 19-31 CALCIUM (test code = 2209) 9.3 MG/DL 8.5-10.5 PROTEIN, TOTAL (test code = 2228) 7.0 G/DL 6.1-8.3 ALBUMIN (test code = 2200) 4.0 G/DL 3.5-5.2 CALC GLOBULIN (test code = 2240) 3.0 G/DL 1.9-3.7 CALC A/G RATIO (test code = 223) 1.3 RATIO 1.0-2.6 BILIRUBIN, TOTAL (test code = 2206) <0.2 MG/DL See_Comment [Automated me ssage] The system which generated this result transmitted reference range: <=1.2. The reference range was not used to interpret this result as normal/abnormal. ALKALINE PHOSPHATASE (test code = 4) 92 U/L 40-112 AST (test code = 2218) 13 U/L 9-40 ALT (test code = 2219) 13 U/L 5-40 UNLESS OTHERWISE INDICATED, ALL TESTING PERFORMED AT [facility] [address] [place] [id number] STRAP SETTER: MARSHALL CARREON M.D. CLIA NUMBER [id number] [place] [id number] CULTURE, [id number] 12:04:30SPECIMEN NUMBER: [id number] CULTURE, URINE SPECIMEN NUMBER: [id number] SPECIMEN COMMENT: URINE SOURCE: URINE REPORT STATUS: FINAL FINAL REPORT: 08/21/2022 10-50,000 CFU/ML UROGENITAL SEBASTIEN PRESENT NO CO MMON PATHOGENS UNLESS OTHERWISE INDICATED, ALL TESTING PERFORMED AT [facility] [address] [place] [address] STRAP SETTER: MARSHALL CARREON M.D. CLIA NUMBER [id number] [facility] [place]. [id number] LIPID [id number] 03:00:35* Test Item Value Reference Range Interpretation Comme nts CHOLESTEROL (test code = 2210) 205 MG/DL <200 H TRIGLYCERIDES (test code = 2232) 153 MG/DL <150 H HDL CHOLESTEROL (test code = 2220) 37 MG/DL >39 L CALC LDL CHOL (test code = 2237) 140 MG/DL <100 H NOTE: CALCULATED LDL IS BASED ON MENA-ZARCO METHOD WHICHINCLUDES ADJUSTABLE TRIGLYCERIDE:VLDL CHOLESTEROL RATIO.THIS FACTOR VARIES BY MEASURED TRIGLYCERIDE AND NON-HDLCHOLESTEROL CONCENTRATIONS WITH INCREASED CALCULATED LDL SEENIN HIGHER TRIGLYCERIDE OR LOWER NON-HDL SPECIMENS. FOR MOREINFORMATION, SEE CLIENT ANNOUNCEMENT AT [email or web address] /CalcLDL-C RISK RATIO LDL/HDL (test code = 2238) 3.78 RATIO <3.22 H COMPREHENSIVE METABOLIC [id number] 03:00:35* Test Item Value Reference Range Interpretation Comme nts GLUCOSE (test code = 2217) 92 MG/DL 70-99 BUN (test code = 2208) 7 MG/DL 6-20 CREATININE (test code = 2214) 0.95 MG/DL 0.60-1.30 eGFR (2020 CKD-EPI) (test code = 12938) 80 ML/MIN/1.73 >60 CALC BUN/CREAT (test code = 2235) 7 RATIO 6-28 SODIUM (test code = 2231) 139 MEQ/L 133-146 POTASSIUM (test code = 2228) 4.6 MEQ/L 3.5-5.4 CHLORIDE (test code = 2215) 104 MEQ/L 95-107 CARBON DIOXIDE (test code = 2206) 26 MEQ/L 19-31 CALCIUM (test code = 2209) 9.4 MG/DL 8.5-10.5 PROTEIN, TOTAL (test code = 222) 7.3 G/DL 6.1-8.3 ALBUMIN (test code = 2201) 4.4 G/DL 3.5-5.2 CALC GLOBULIN (test code = 2240) 2.9 G/DL 1.9-3.7 CALC A/G RATIO (test code = 223) 1.5 RATIO 1.0-2.6 BILIRUBIN, TOTAL (test code = 7) 0.3 MG/DL See_Comment [Automated me ssage] The system which generated this result transmitted reference range: <=1.2. The reference range was not used to interpret this result as normal/abnormal. ALKALINE PHOSPHATASE (test code = 2203) 96 U/L 40-112 AST (test code = 2218) 10 U/L 9-40 ALT (test code = 2219) 11 U/L 5-40 UNLESS OTHERWISE INDICATED, [facility] [address] [place] [id number] STRAP SETTER: LYNN PEREZ M.D. CLIA NUMBER [id number] [facility] [place]. [id number] HEMOGLOBIN [id number] 02:32:54* Test Item Value Reference Range Interpretation Comme nts HEMOGLOBIN A1c (test code = 78705) 5.3 % 4.2-5.6 CBC W/AUTO DIFF WITH [id number] 01:45:03* Test Item Value Reference Range Interpretation Comme nts WBC (test code = 1001) 9.8 K/UL 3.5-11.0 RBC (test code = 1002) 4.56 M/UL 3.80-5.40 HEMOGLOBIN (test code = 1003) 14.0 G/DL 11.5-15.5 HEMATOCRIT (test code = 1004) 41.7 % 34.0-45.0 MCV (test code = 1005) 91.4 fL 80.0-99.0 MCH (test code = 1006) 30.7 PG 25.0-33.0 MCHC (test code = 1007) 33.6 G/DL 31.0-36.0 RDW (test code = 1038) 12.6 % 11.5-15.0 NEUTROPHILS (test code = 1008) 66.9 % LYMPHOCYTES (test code = 1010) 24.6 % MONOCYTES (test code = 1011) 6.8 % EOSINOPHILS (test code = 1012) 1.1 % BASOPHILS (test code = 1013) 0.4 % IMMATURE GRANULOCYTES (test code = 1036) 0.2 % NUCLEATED RBCS (test code = 1065) 0.0 /100 WBC'S See_Comment [Automated messa ge] The system which generated this result transmitted reference range: 0.0. The reference range was not used to interpret this result as normal/abnormal. PLATELET COUNT (test code = 1015) 345 K/UL 130-400 ABSOLUTE NEUTROPHILS (test code = 1066) 6.57 K/UL 1.50-7.50 ABSOLUTE LYMPHOCYTES (test code = 1067) 2.42 K/UL 1.00-4.00 ABSOLUTE MONOCYTES (test code = 1068) 0.67 K/UL 0.20-1.00 ABSOLUTE EOSINOPHILS (test code = 1040) 0.11 K/UL 0.00-0.50 ABSOLUTE BASOPHILS (test code = 1069) 0.04 K/UL 0.00-0.20 ABS IMMATURE GRANULOCYTES (test code = 1020) 0.02 K/UL 0.00-0.10 ABS NUCLEATED RBCS (test code = 52177) 0.00 K/UL 0.00-0.11 CBC W/AUTO [id number] 00:00:00* Test Item Value Reference Range Interpretation Comme nts WBC (test code = 1001) 9.8 K/UL [...] = 1013) 0.4 % IMMATURE GRANULOCYTES (test code = 1036) 0.2 % NUCLEATED RBCS (test code = 1065) 0.0 /100WBC'S PLATELET COUNT (test code = 1015) 345 K/UL ABSOLUTE NEUTROPHILS (test c ode = 1066) 6.57 K/UL ABSOLUTE LYMPHOCYTES (test c ode = 1067) 2.42 K/UL ABSOLUTE MONOCYTES (test cod e = 1068) 0.67 K/UL ABSOLUTE EOSINOPHILS (test c ode = 1040) 0.11 K/UL ABSOLUTE BASOPHILS (test cod e = 1069) 0.04 K/UL ABS IMMATURE GRANULOCYTES (t est code = 1020) 0.02 K/UL ABS NUCLEATED RBCS (test cod e = 19684) 0.00 K/UL CBC W/AUTO [id number] 00:00:00* Test Item Value Reference Range Interpretation Comme nts WBC (test code = 1001) 9.8 K/UL [...] = 1013) 0.4 % IMMATURE GRANULOCYTES (test code = 1036) 0.2 % NUCLEATED RBCS (test code = 1065) 0.0 /100WBC'S PLATELET COUNT (test code = 1015) 345 K/UL ABSOLUTE NEUTROPHILS (test c ode = 1066) 6.57 K/UL ABSOLUTE LYMPHOCYTES (test c ode = 1067) 2.42 K/UL ABSOLUTE MONOCYTES (test cod e = 1068) 0.67 K/UL ABSOLUTE EOSINOPHILS (test c ode = 1040) 0.11 K/UL ABSOLUTE BASOPHILS (test cod e = 1069) 0.04 K/UL ABS IMMATURE GRANULOCYTES (t est code = 1020) 0.02 K/UL ABS NUCLEATED RBCS (test cod e = 58456) 0.00 K/UL CBC W/AUTO [id number] 00:00:00* Test Item Value Reference Range Interpretation Comme nts WBC (test code = 1001) 9.8 K/UL [...] = 1013) 0.4 % IMMATURE GRANULOCYTES (test code = 1036) 0.2 % NUCLEATED RBCS (test code = 1065) 0.0 /100WBC'S PLATELET COUNT (test code = 1015) 345 K/UL ABSOLUTE NEUTROPHILS (test c ode = 1066) 6.57 K/UL ABSOLUTE LYMPHOCYTES (test c ode = 1067) 2.42 K/UL ABSOLUTE MONOCYTES (test cod e = 1068) 0.67 K/UL ABSOLUTE EOSINOPHILS (test c ode = 1040) 0.11 K/UL ABSOLUTE BASOPHILS (test cod e = 1069) 0.04 K/UL ABS IMMATURE GRANULOCYTES (t est code = 1020) 0.02 K/UL ABS NUCLEATED RBCS (test cod e = 47196) 0.00 K/UL LIPID [id number] 00:00:00* Test Item Value Reference Range Interpretation Comme nts CHOLESTEROL (test code = 2210) 205 MG/DL TRIGLYCERIDES (test code = 2232) 153 MG/DL HDL CHOLESTEROL (test code = 2220) 37 MG/DL CALC LDL CHOL (test code = 2237) 140 MG/DL RISK RATIO LDL/HDL (test cod e = 2238) 3.78 RATIO LIPID [id number] 00:00:00* Test Item Value Reference Range Interpretation Comme nts CHOLESTEROL (test code = 2210) 205 MG/DL TRIGLYCERIDES (test code = 2232) 153 MG/DL HDL CHOLESTEROL (test code = 2220) 37 MG/DL CALC LDL CHOL (test code = 2237) 140 MG/DL RISK RATIO LDL/HDL (test cod e = 2238) 3.78 RATIO HEMOGLOBIN [id number] 00:00:00* Test Item Value Reference Range Interpretation Comme nts HEMOGLOBIN A1c (test code = 96007) 5.3 % HEMOGLOBIN [id number] 00:00:00* Test Item Value Reference Range Interpretation Comme nts HEMOGLOBIN A1c (test code = 09257) 5.3 % HEMOGLOBIN [id number] 00:00:00* Test Item Value Reference Range Interpretation Comme nts HEMOGLOBIN A1c (test code = 08055) 5.3 % COMPREHENSIVE METABOLIC [id number] 00:00:00* Test Item Value Reference Range Interpretation Comme nts GLUCOSE (test code = 2217) 92 MG/DL BUN (test code = 2208) 7 MG/DL CREATININE (test code = 2214) 0.95 MG/DL eGFR (2020 CKD-EPI) (test co de = 80214) 80 ML/MIN/1.73 CALC BUN/CREAT (test code = 2235) 7 RATIO SODIUM (test code = 2231) 139 MEQ/L POTASSIUM (test code = 2228) 4.6 MEQ/L CHLORIDE (test code = 2215) 104 MEQ/L CARBON DIOXIDE (test code = 2206) 26 MEQ/L CALCIUM (test code = 2209) 9.4 MG/DL PROTEIN, TOTAL (test code = 2229) 7.3 G/DL ALBUMIN (test code = 2201) 4.4 G/DL CALC GLOBULIN (test code = 2240) 2.9 G/DL CALC A/G RATIO (test code = 2234) 1.5 RATIO BILIRUBIN, TOTAL (test code = 2207) 0.3 MG/DL ALKALINE PHOSPHATASE (test code = 2204) 96 U/L AST (test code = 2218) 10 U/L ALT (test code = 2219) 11 U/L COMPREHENSIVE METABOLIC [id number] 00:00:00* Test Item Value Reference Range Interpretation Comme nts GLUCOSE (test code = 2217) 92 MG/DL BUN (test code = 2208) 7 MG/DL CREATININE (test code = 2214) 0.95 MG/DL eGFR (2020 CKD-EPI) (test co de = 14867) 80 ML/MIN/1.73 CALC BUN/CREAT (test code = 2235) 7 RATIO SODIUM (test code = 2231) 139 MEQ/L POTASSIUM (test code = 2228) 4.6 MEQ/L CHLORIDE (test code = 2215) 104 MEQ/L CARBON DIOXIDE (test code = 2206) 26 MEQ/L CALCIUM (test code = 2209) 9.4 MG/DL PROTEIN, TOTAL (test code = 2229) 7.3 G/DL ALBUMIN (test code = 2201) 4.4 G/DL CALC GLOBULIN (test code = 2240) 2.9 G/DL CALC A/G RATIO (test code = 2234) 1.5 RATIO BILIRUBIN, TOTAL (test code = 2207) 0.3 MG/DL ALKALINE PHOSPHATASE (test code = 2204) 96 U/L AST (test code = 2218) 10 U/L ALT (test code = 2219) 11 U/L CT/NG, NAAT, [id number] 08:29:05* Test Item Value Reference Range Interpretation Comme nts GONORRHEA, NAAT (test code = 58243) NEGATIVE NEGATIVE IMPORTANT NO RODRIGO: SEE ANNOUNCEMENT AT [email or web address] Note: Assay methodology is nucleic acid amplification by tire center supervisor mediated amplification (TMA) utilizing the Aptima Combo 2 Assay. CHLAMYDIA, NAAT (test code = 57819) NEGATIVE NEGATIVE IMPORTANT NO RODRIGO: SEE ANNOUNCEMENT AT [email or web address] Note: Assay methodology is nucleic acid amplification by tire center supervisor mediated amplification (TMA) utilizing the Aptima Combo [address]/NG, NAAT, URINE [ADDED]2021-10-08 00:00:00* Test Item Value Reference Range Interpretation Comme nts GONORRHEA, NAAT (test code = 41318) NEGATIVE CHLAMYDIA, NAAT (test code = 69142) NEGATIVE CT/NG, NAAT, URINE [ADDED]2021-10-08 00:00:00* Test Item Value Reference Range Interpretation Comme nts GONORRHEA, NAAT (test code = 22065) NEGATIVE CHLAMYDIA, NAAT (test code = 70879) NEGATIVE CT/NG, NAAT, URINE [ADDED]2021-10-08 00:00:00* Test Item Value Reference Range Interpretation Comme nts GONORRHEA, NAAT (test code = 76635) NEGATIVE CHLAMYDIA, NAAT (test code = 17760) NEGATIVE VAGINAL PATHOGENS DNA [id number] 14:55:46* Test Item Value Reference Range Interpretation Comme nts LUCIA SPECIES (test code = ) NEGATIVE NEGATIVE G. VAGINALIS (test code = ) POSITIVE NEGATIVE A T. VAGINALIS (test code = ) NEGATIVE NEGATIVE HIV 1/2 4TH GEN, RFLX [id number] 06:05:55* Test Item Value Reference Range Interpretation Comme nts HIV 1/2 4TH GEN, RFLX CONF ( test code = 3514) NON-REACTIVE NON-REACTIVE HEPATITIS PANEL, [id number] 06:05:55* Test Item Value Reference Range Interpretation Comme nts HEPATITIS A IgM (test code = 38091) NON-REACTIVE NON-REACTIVE HEPATITIS B CORE IgM (test code = 4644) NON-REACTIVE NON-REACTIVE HEPATITIS B SURF AG (test code = 2739) NON-REACTIVE NON-REACTIVE HEPATITIS C ANTIBODY (test code = 4675) NON-REACTIVE NON-REACTIVE INTERPRETATION HEPATITIS A: (test code = 2552) (NOTE) Hepatitis A sero logy shows no evidence of acute hepatitis A. INTERPRETATION HEPATITIS B: (test code = 84045) (NOTE) Hepatitis B sero logy shows no evidence of acute hepatitis B andno indication of exposure to hepatitis B virus in the previous stephy eight months. INTERPRETATION HEPATITIS C: (test code = 22871) (NOTE) Hepatitis C sero logy shows no evidence of exposure to hepatitisC virus at this time. It can take up to 12 months after exposure tothe hepatitis C virus for antibodies to become detectable in the blood in certain patients. UNLESS OTHERWISE INDICATED, ALL TESTING PERFORMED [facility] [address] [place] [address] STRAP SETTER: LYNN PEREZ M.D. [place] NUMBER [id number] [facility] [place]. [id number] 05:17:45* Test Item Value Reference Range Interpretation Comme nts RPR RESULT (test code = 3501) NON-REACTIVE NON-REACTIVE RPR TITER (test code = 3500) NOT INDIC. TITER NOT INDIC. VAGINAL PATHOGENS DNA PANEL [ADDED]2021-10-04 00:00:00* Test Item Value Reference Range Interpretation Comme nts LUCIA SPECIES (test code = ) NEGATIVE G. VAGINALIS (test code = ) POSITIVE T. VAGINALIS (test code = 30948) NEGATIVE HIV 1/2 4TH GEN, RFLX CONF [ADDED]2021-10-04 00:00:00* Test Item Value Reference Range Interpretation Comme nts HIV 1/2 4TH GEN, RFLX CONF ( test code = 3514) NON-REACTIVE RPR [ADDED]2021-10-04 00:00:00* Test Item Value Reference Range Interpretation Comme nts RPR RESULT (test code = 3501) NON-REACTIVE RPR TITER (test code = 3500) NOT INDIC. TITER RPR [ADDED]2021-10-04 00:00:00* Test Item Value Reference Range Interpretation Comme nts RPR RESULT (test code = 3501) NON-REACTIVE RPR TITER (test code = 3500) NOT INDIC. TITER HEPATITIS PANEL, ACUTE [ADDED]2021-10-04 00:00:00* Test Item Value Reference Range Interpretation Comme nts HEPATITIS A IgM (test code = 17432) NON-REACTIVE HEPATITIS B CORE IgM (test c ode = 4644) NON-REACTIVE HEPATITIS B SURF AG (test co de = 2739) NON-REACTIVE HEPATITIS C ANTIBODY (test c ode = 4675) NON-REACTIVE INTERPRETATION HEPATITIS A: (test code = 2552) (NOTE) INTERPRETATION HEPATITIS B: (test code = 52100) (NOTE) INTERPRETATION HEPATITIS C: (test code = 98626) (NOTE) VAGINAL PATHOGENS DNA PANEL [ADDED]2021-10-04 00:00:00* Test Item Value Reference Range Interpretation Comme nts LUCIA SPECIES (test code = 47523) NEGATIVE G. VAGINALIS (test code = 20694) POSITIVE T. VAGINALIS (test code = 73962) NEGATIVE VAGINAL PATHOGENS DNA PANEL [ADDED]2021-10-04 00:00:00* Test Item Value Reference Range Interpretation Comme nts LUCIA SPECIES (test code = 41602) NEGATIVE G. VAGINALIS (test code = 63722) POSITIVE T. VAGINALIS (test code = 97555) NEGATIVE HIV 1/2 4TH GEN, RFLX CONF [ADDED]2021-10-04 00:00:00* Test Item Value Reference Range Interpretation Comme nts HIV 1/2 4TH GEN, RFLX CONF ( test code = 3514) NON-REACTIVE HIV 1/2 4TH GEN, RFLX CONF [ADDED]2021-10-04 00:00:00* Test Item Value Reference Range Interpretation Comme nts HIV 1/2 4TH GEN, RFLX CONF ( test code = 3514) NON-REACTIVE RPR [ADDED]2021-10-04 00:00:00* Test Item Value Reference Range Interpretation Comme nts RPR RESULT (test code = 3501) NON-REACTIVE RPR TITER (test code = 3500) NOT INDIC. TITER RPR [ADDED]2021-10-04 00:00:00* Test Item Value Reference Range Interpretation Comme nts RPR RESULT (test code = 3501) NON-REACTIVE RPR TITER (test code = 3500) NOT INDIC. TITER RPR [ADDED]2021-10-04 00:00:00* Test Item Value Reference Range Interpretation Comme nts RPR RESULT (test code = 3501) NON-REACTIVE RPR TITER (test code = 3500) NOT INDIC. TITER HEPATITIS PANEL, ACUTE [ADDED]2021-10-04 00:00:00* Test Item Value Reference Range Interpretation Comme nts HEPATITIS A IgM (test code = 55800) NON-REACTIVE HEPATITIS B CORE IgM (test c ode = 4644) NON-REACTIVE HEPATITIS B SURF AG (test co de = 2739) NON-REACTIVE HEPATITIS C ANTIBODY (test c ode = 4675) NON-REACTIVE INTERPRETATION HEPATITIS A: (test code = 2552) (NOTE) INTERPRETATION HEPATITIS B: (test code = 09741) (NOTE) INTERPRETATION HEPATITIS C: (test code = 91378) (NOTE) HEPATITIS PANEL, ACUTE [ADDED]2021-10-04 00:00:00* Test Item Value Reference Range Interpretation Comme nts HEPATITIS A IgM (test code = 04315) NON-REACTIVE HEPATITIS B CORE IgM (test c ode = 4644) NON-REACTIVE HEPATITIS B SURF AG (test co de = 2739) NON-REACTIVE HEPATITIS C ANTIBODY (test c ode = 4675) NON-REACTIVE INTERPRETATION HEPATITIS A: (test code = 2552) (NOTE) INTERPRETATION HEPATITIS B: (test code = 34181) (NOTE) INTERPRETATION HEPATITIS C: (test code = 90311) (NOTE) [id number] 12:23:45* Test Item Value Reference Range Interpretation Comments LEVETIRACETAM (test code = 41544) 18.2 mcg/mL 12.0-46.0 This test was develo ped and its performance characteristicsdetermined by [facility] ([facility]). It has not beencleared or approved by the U.S. Food and Drug Administration (FDA).The FDA has determined that such clearance or approval is notnecessary. This test is used for clinical purposes and should not beregarded as investigational or for research. [facility] is qualified toperform high complexity testing under the Clinical LaboratoryImprovement Amendments (CLIA). TESTING PERFORMED AT [facility] [address] [place] [address], [address], [address] [address] CLIA NO: [id number] UNLESS OTHERWISE INDICATED, ALL TESTING PERFORMED [facility] [address] [place] [address] STRAP SETTER: LYNN PEREZ M.D. CLIA NUMBER [id number] [facility] [place]. [id number] 00:00:00* Test Item Value Reference Range Interpretation Comme nts LEVETIRACETAM (test code = 13788) 18.2 mcg/mL [id number] 00:00:00* Test Item Value Reference Range Interpretation Comme nts LEVETIRACETAM (test code = 36094) 18.2 mcg/mL [id number] 00:00:00* Test Item Value Reference Range Interpretation Comme nts LEVETIRACETAM (test code = 90789) 18.2 mcg/mL [id number] 00:00:00* Test Item Value Reference Range Interpretation Comme nts LEVETIRACETAM (test code = 72069) 18.2 mcg/mL [id number] 00:00:00* Test Item Value Reference Range Interpretation Comme nts LEVETIRACETAM (test code = 69001) 18.2 mcg/mL CBC W/AUTO DIFF WITH [id number] 06:02:13* Test Item Value Reference Range Interpretation Comme nts WBC (test code = 1001) 10.8 K/UL 3.5-11.0 RBC (test code = 1002) 4.43 M/UL 3.80-5.40 HEMOGLOBIN (test code = 1003) 13.5 G/DL 11.5-15.5 HEMATOCRIT (test code = 1004) 40.1 % 34.0-45.0 MCV (test code = 1005) 90.5 fL 80.0-99.0 MCH (test code = 1006) 30.5 PG 25.0-33.0 MCHC (test code = 1007) 33.7 G/DL 31.0-36.0 RDW (test code = 1038) 12.4 % 11.5-15.0 NEUTROPHILS (test code = 1008) 68.6 % LYMPHOCYTES (test code = 1010) 22.2 % MONOCYTES (test code = 1011) 6.8 % EOSINOPHILS (test code = 1012) 1.8 % BASOPHILS (test code = 1013) 0.5 % IMMATURE GRANULOCYTES (test code = 1036) 0.1 % NUCLEATED RBCS (test code = 1065) 0.0 /100 WBC'S See_Comment [Automated message] The system which generated this result transmitted reference range: 0.0. The reference range was not used to interpret this result as normal/abnormal. PLATELET COUNT (test code = 1015) 398 K/UL 130-400 ABSOLUTE NEUTROPHILS (test code = 1066) 7.42 K/UL 1.50-7.50 ABSOLUTE LYMPHOCYTES (test code = 1067) 2.40 K/UL 1.00-4.00 ABSOLUTE MONOCYTES (test code = 1068) 0.74 K/UL 0.20-1.00 ABSOLUTE EOSINOPHILS (test code = 1040) 0.19 K/UL 0.00-0.50 ABSOLUTE BASOPHILS (test code = 1069) 0.05 K/UL 0.00-0.20 ABS IMMATURE GRANULOCYTES (test code = 1020) 0.01 K/UL 0.00-0.10 ABS NUCLEATED RBCS (test code = 61275) 0.00 K/UL 0.00-0.11 UNLESS OTHER ZARAGOZA INDICATED, ALL TESTING PERFORMED [facility] [address] [place] [address] STRAP SETTER: LYNN PEREZ M.D. CLIA NUMBER [id number] [place]. [id number] CBC W/AUTO [id number] 00:00:00* Test Item Value Reference Range Interpretation Comme nts WBC (test code = 1001) 10.8 K/UL [...] = 1013) 0.5 % IMMATURE GRANULOCYTES (test code = 1036) 0.1 % NUCLEATED RBCS (test code = 1065) 0.0 /100WBC'S PLATELET COUNT (test code = 1015) 398 K/UL ABSOLUTE NEUTROPHILS (test c ode = 1066) 7.42 K/UL ABSOLUTE LYMPHOCYTES (test c ode = 1067) 2.40 K/UL ABSOLUTE MONOCYTES (test cod e = 1068) 0.74 K/UL ABSOLUTE EOSINOPHILS (test c ode = 1040) 0.19 K/UL ABSOLUTE BASOPHILS (test cod e = 1069) 0.05 K/UL ABS IMMATURE GRANULOCYTES (t est code = 1020) 0.01 K/UL ABS NUCLEATED RBCS (test cod e = 96996) 0.00 K/UL CBC W/AUTO [id number] 00:00:00* Test Item Value Reference Range Interpretation Comme nts WBC (test code = 1001) 10.8 K/UL [...] = 1013) 0.5 % IMMATURE GRANULOCYTES (test code = 1036) 0.1 % NUCLEATED RBCS (test code = 1065) 0.0 /100WBC'S PLATELET COUNT (test code = 1015) 398 K/UL ABSOLUTE NEUTROPHILS (test c ode = 1066) 7.42 K/UL ABSOLUTE LYMPHOCYTES (test c ode = 1067) 2.40 K/UL ABSOLUTE MONOCYTES (test cod e = 1068) 0.74 K/UL ABSOLUTE EOSINOPHILS (test c ode = 1040) 0.19 K/UL ABSOLUTE BASOPHILS (test cod e = 1069) 0.05 K/UL ABS IMMATURE GRANULOCYTES (t est code = 1020) 0.01 K/UL ABS NUCLEATED RBCS (test cod e = 05138) 0.00 K/UL CBC W/AUTO [id number] 00:00:00* Test Item Value Reference Range Interpretation Comme nts WBC (test code = 1001) 10.8 K/UL [...] = 1013) 0.5 % IMMATURE GRANULOCYTES (test code = 1036) 0.1 % NUCLEATED RBCS (test code = 1065) 0.0 /100WBC'S PLATELET COUNT (test code = 1015) 398 K/UL ABSOLUTE NEUTROPHILS (test c ode = 1066) 7.42 K/UL ABSOLUTE LYMPHOCYTES (test c ode = 1067) 2.40 K/UL ABSOLUTE MONOCYTES (test cod e = 1068) 0.74 K/UL ABSOLUTE EOSINOPHILS (test c ode = 1040) 0.19 K/UL ABSOLUTE BASOPHILS (test cod e = 1069) 0.05 K/UL ABS IMMATURE GRANULOCYTES (t est code = 1020) 0.01 K/UL ABS NUCLEATED RBCS (test cod e = 43599) 0.00 K/UL CBC W/AUTO [id number] 00:00:00* Test Item Value Reference Range Interpretation Comme nts WBC (test code = 1001) 10.8 K/UL [...] = 1013) 0.5 % IMMATURE GRANULOCYTES (test code = 1036) 0.1 % NUCLEATED RBCS (test code = 1065) 0.0 /100WBC'S PLATELET COUNT (test code = 1015) 398 K/UL ABSOLUTE NEUTROPHILS (test c ode = 1066) 7.42 K/UL ABSOLUTE LYMPHOCYTES (test c ode = 1067) 2.40 K/UL ABSOLUTE MONOCYTES (test cod e = 1068) 0.74 K/UL ABSOLUTE EOSINOPHILS (test c ode = 1040) 0.19 K/UL ABSOLUTE BASOPHILS (test cod e = 1069) 0.05 K/UL ABS IMMATURE GRANULOCYTES (t est code = 1020) 0.01 K/UL ABS NUCLEATED RBCS (test cod e = 16068) 0.00 K/UL CBC W/AUTO [id number] 00:00:00* Test Item Value Reference Range Interpretation Comme nts WBC (test code = 1001) 10.8 K/UL [...] = 1013) 0.5 % IMMATURE GRANULOCYTES (test code = 1036) 0.1 % NUCLEATED RBCS (test code = 1065) 0.0 /100WBC'S PLATELET COUNT (test code = 1015) 398 K/UL ABSOLUTE NEUTROPHILS (test c ode = 1066) 7.42 K/UL ABSOLUTE LYMPHOCYTES (test c ode = 1067) 2.40 K/UL ABSOLUTE MONOCYTES (test cod e = 1068) 0.74 K/UL ABSOLUTE EOSINOPHILS (test c ode = 1040) 0.19 K/UL ABSOLUTE BASOPHILS (test cod e = 1069) 0.05 K/UL ABS IMMATURE GRANULOCYTES (t est code = 1020) 0.01 K/UL ABS NUCLEATED RBCS (test cod e = 66818) 0.00 K/UL CBC W/AUTO [id number] 00:00:00* Test Item Value Reference Range Interpretation Comme nts WBC (test code = 1001) 10.8 K/UL [...] = 1013) 0.5 % IMMATURE GRANULOCYTES (test code = 1036) 0.1 % NUCLEATED RBCS (test code = 1065) 0.0 /100WBC'S PLATELET COUNT (test code = 1015) 398 K/UL ABSOLUTE NEUTROPHILS (test c ode = 1066) 7.42 K/UL ABSOLUTE LYMPHOCYTES (test c ode = 1067) 2.40 K/UL ABSOLUTE MONOCYTES (test cod e = 1068) 0.74 K/UL ABSOLUTE EOSINOPHILS (test c ode = 1040) 0.19 K/UL ABSOLUTE BASOPHILS (test cod e = 1069) 0.05 K/UL ABS IMMATURE GRANULOCYTES (t est code = 1020) 0.01 K/UL ABS NUCLEATED RBCS (test cod e = 37744) 0.00 K/UL CBC W/AUTO [id number] 00:00:00* Test Item Value Reference Range Interpretation Comme nts WBC (test code = 1001) 10.8 K/UL [...] = 1013) 0.5 % IMMATURE GRANULOCYTES (test code = 1036) 0.1 % NUCLEATED RBCS (test code = 1065) 0.0 /100WBC'S PLATELET COUNT (test code = 1015) 398 K/UL ABSOLUTE NEUTROPHILS (test c ode = 1066) 7.42 K/UL ABSOLUTE LYMPHOCYTES (test c ode = 1067) 2.40 K/UL ABSOLUTE MONOCYTES (test cod e = 1068) 0.74 K/UL ABSOLUTE EOSINOPHILS (test c ode = 1040) 0.19 K/UL ABSOLUTE BASOPHILS (test cod e = 1069) 0.05 K/UL ABS IMMATURE GRANULOCYTES (t est code = 1020) 0.01 K/UL ABS NUCLEATED RBCS (test cod e = 48960) 0.00 K/UL CBC W/AUTO [id number] 00:00:00* Test Item Value Reference Range Interpretation Comme nts WBC (test code = 1001) 10.8 K/UL [...] = 1013) 0.5 % IMMATURE GRANULOCYTES (test code = 1036) 0.1 % NUCLEATED RBCS (test code = 1065) 0.0 /100WBC'S PLATELET COUNT (test code = 1015) 398 K/UL ABSOLUTE NEUTROPHILS (test c ode = 1066) 7.42 K/UL ABSOLUTE LYMPHOCYTES (test c ode = 1067) 2.40 K/UL ABSOLUTE MONOCYTES (test cod e = 1068) 0.74 K/UL ABSOLUTE EOSINOPHILS (test c ode = 1040) 0.19 K/UL ABSOLUTE BASOPHILS (test cod e = 1069) 0.05 K/UL ABS IMMATURE GRANULOCYTES (t est code = 1020) 0.01 K/UL ABS NUCLEATED RBCS (test cod e = 34573) 0.00 K/UL CBC W/AUTO [id number] 00:00:00* Test Item Value Reference Range Interpretation Comme nts WBC (test code = 1001) 10.8 K/UL [...] = 1013) 0.5 % IMMATURE GRANULOCYTES (test code = 1036) 0.1 % NUCLEATED RBCS (test code = 1065) 0.0 /100WBC'S PLATELET COUNT (test code = 1015) 398 K/UL ABSOLUTE NEUTROPHILS (test c ode = 1066) 7.42 K/UL ABSOLUTE LYMPHOCYTES (test c ode = 1067) 2.40 K/UL ABSOLUTE MONOCYTES (test cod e = 1068) 0.74 K/UL ABSOLUTE EOSINOPHILS (test c ode = 1040) 0.19 K/UL ABSOLUTE BASOPHILS (test cod e = 1069) 0.05 K/UL ABS IMMATURE GRANULOCYTES (t est code = 1020) 0.01 K/UL ABS NUCLEATED RBCS (test cod e = 03609) 0.00 K/UL HIV AB/AG COMBO RFLX [id number] 00:00:00* Test Item Value Reference Range Interpretation Comme nts HIV 1/2 4TH GEN, RFLX CONF ( test code = 3514) NON-REACTIVE GC AND CHLAMYDIA, AMPLIFIED, [id number] 00:00:00* Test Item Value Reference Range Interpretation Comme nts GONORRHEA, NAAT (test code = 22323) NEGATIVE CHLAMYDIA, NAAT (test code = 24311) NEGATIVE [id number] 00:00:00* Test Item Value Reference Range Interpretation Comme nts RPR RESULT (test code = 3501) NON-REACTIVE RPR TITER (test code = 3500) NOT INDIC. TITER [id number] 00:00:00* Test Item Value Reference Range Interpretation Comme nts RPR RESULT (test code = 3501) NON-REACTIVE RPR TITER (test code = 3500) NOT INDIC. TITER TRICHOMONAS, URINE, [id number] 00:00:00* Test Item Value Reference Range Interpretation Comme nts TRICHOMONAS, NAAT (test code = 18661) NEGATIVE HIV AB/AG COMBO RFLX [id number] 00:00:00* Test Item Value Reference Range Interpretation Comme nts HIV 1/2 4TH GEN, RFLX CONF ( test code = 3514) NON-REACTIVE GC AND CHLAMYDIA, AMPLIFIED, [id number] 00:00:00* Test Item Value Reference Range Interpretation Comme nts GONORRHEA, NAAT (test code = 88199) NEGATIVE CHLAMYDIA, NAAT (test code = 08058) NEGATIVE [id number] 00:00:00* Test Item Value Reference Range Interpretation Comme nts RPR RESULT (test code = 3501) NON-REACTIVE RPR TITER (test code = 3500) NOT INDIC. TITER [id number] 00:00:00* Test Item Value Reference Range Interpretation Comme nts RPR RESULT (test code = 3501) NON-REACTIVE RPR TITER (test code = 3500) NOT INDIC. TITER TRICHOMONAS, URINE, [id number] 00:00:00* Test Item Value Reference Range Interpretation Comme nts TRICHOMONAS, NAAT (test code = 10869) NEGATIVE HIV AB/AG COMBO RFLX [id number] 00:00:00* Test Item Value Reference Range Interpretation Comme nts HIV 1/2 4TH GEN, RFLX CONF ( test code = 3514) NON-REACTIVE GC AND CHLAMYDIA, AMPLIFIED, [id number] 00:00:00* Test Item Value Reference Range Interpretation Comme nts GONORRHEA, NAAT (test code = 59059) NEGATIVE CHLAMYDIA, NAAT (test code = 08351) NEGATIVE [id number] 00:00:00* Test Item Value Reference Range Interpretation Comme nts RPR RESULT (test code = 3501) NON-REACTIVE RPR TITER (test code = 3500) NOT INDIC. TITER [id number] 00:00:00* Test Item Value Reference Range Interpretation Comme nts RPR RESULT (test code = 3501) NON-REACTIVE RPR TITER (test code = 3500) NOT INDIC. TITER TRICHOMONAS, URINE, [id number] 00:00:00* Test Item Value Reference Range Interpretation Comme nts TRICHOMONAS, NAAT (test code = 96375) NEGATIVE HIV AB/AG COMBO RFLX [id number] 00:00:00* Test Item Value Reference Range Interpretation Comme nts HIV 1/2 4TH GEN, RFLX CONF ( test code = 3514) NON-REACTIVE GC AND CHLAMYDIA, AMPLIFIED, [id number] 00:00:00* Test Item Value Reference Range Interpretation Comme nts GONORRHEA, NAAT (test code = 51700) NEGATIVE CHLAMYDIA, NAAT (test code = 33251) NEGATIVE [id number] 00:00:00* Test Item Value Reference Range Interpretation Comme nts RPR RESULT (test code = 3501) NON-REACTIVE RPR TITER (test code = 3500) NOT INDIC. TITER [id number] 00:00:00* Test Item Value Reference Range Interpretation Comme nts RPR RESULT (test code = 3501) NON-REACTIVE RPR TITER (test code = 3500) NOT INDIC. TITER TRICHOMONAS, URINE, [id number] 00:00:00* Test Item Value Reference Range Interpretation Comme nts TRICHOMONAS, NAAT (test code = 89018) NEGATIVE HIV AB/AG COMBO RFLX [id number] 00:00:00* Test Item Value Reference Range Interpretation Comme nts HIV 1/2 4TH GEN, RFLX CONF ( test code = 3514) NON-REACTIVE HIV AB/AG COMBO RFLX [id number] 00:00:00* Test Item Value Reference Range Interpretation Comme nts HIV 1/2 4TH GEN, RFLX CONF ( test code = 3514) NON-REACTIVE GC AND CHLAMYDIA, AMPLIFIED, [id number] 00:00:00* Test Item Value Reference Range Interpretation Comme nts GONORRHEA, NAAT (test code = 06854) NEGATIVE CHLAMYDIA, NAAT (test code = 74077) NEGATIVE GC AND CHLAMYDIA, AMPLIFIED, [id number] 00:00:00* Test Item Value Reference Range Interpretation Comme nts GONORRHEA, NAAT (test code = 81478) NEGATIVE CHLAMYDIA, NAAT (test code = 48068) NEGATIVE [id number] 00:00:00* Test Item Value Reference Range Interpretation Comme nts RPR RESULT (test code = 3501) NON-REACTIVE RPR TITER (test code = 3500) NOT INDIC. TITER [id number] 00:00:00* Test Item Value Reference Range Interpretation Comme nts RPR RESULT (test code = 3501) NON-REACTIVE RPR TITER (test code = 3500) NOT INDIC. TITER [id number] 00:00:00* Test Item Value Reference Range Interpretation Comme nts RPR RESULT (test code = 3501) NON-REACTIVE RPR TITER (test code = 3500) NOT INDIC. TITER TRICHOMONAS, URINE, [id number] 00:00:00* Test Item Value Reference Range Interpretation Comme nts TRICHOMONAS, NAAT (test code = 17089) NEGATIVE TRICHOMONAS, URINE, [id number] 00:00:00* Test Item Value Reference Range Interpretation Comme nts TRICHOMONAS, NAAT (test code = 28797) NEGATIVE PAP TEST, THINPREP, [id number] 00:00:00* Test Item Value Reference Range Interpretation Comme nts SOURCE: (test code = 8001) Cervical/Endocervical SLIDES: (test code = 8011) 1 LMP: (test code = 8021) 08/2017 SPECIMEN ADEQUACY: (test code = 64992) (NOTE) INTERPRETATION: (test code = 45462) NO EPITHELIAL ABNORMALITY SEE BELOW OTHER COMMENTS: (test code = 8081) (NOTE) FLOOR AND WALL APPLIER LIQUID: (test code = 8101) Khushi EvangelistaSCT(ASCP)CT(IAC) LOCATION: (test code = 97025) (NOTE) CPT: (test code = 8140) (NOTE) PAP TEST, THINPREP, [id number] 00:00:00* Test Item Value Reference Range Interpretation Comme nts SOURCE: (test code = 8001) Cervical/Endocervical SLIDES: (test code = 8011) 1 LMP: (test code = 8021) 08/2017 SPECIMEN ADEQUACY: (test code = 07797) (NOTE) INTERPRETATION: (test code = 08930) NO EPITHELIAL ABNORMALITY SEE BELOW OTHER COMMENTS: (test code = 8081) (NOTE) FLOOR AND WALL APPLIER LIQUID: (test code = 8101) ELIE Cabrera(ASCP)CT(IAC) LOCATION: (test code = 45926) (NOTE) CPT: (test code = 8140) (NOTE) PAP TEST, THINPREP, [id number] 00:00:00* Test Item Value Reference Range Interpretation Comme nts SOURCE: (test code = 8001) Cervical/Endocervical SLIDES: (test code = 8011) 1 LMP: (test code = 8021) 08/2017 SPECIMEN ADEQUACY: (test code = 91205) (NOTE) INTERPRETATION: (test code = 35135) NO EPITHELIAL ABNORMALITY SEE BELOW OTHER COMMENTS: (test code = 8081) (NOTE) FLOOR AND WALL APPLIER LIQUID: (test code = 8101) Khushi EvangelistaSCT(ASCP)CT(IAC) LOCATION: (test code = 59437) (NOTE) CPT: (test code = 8140) (NOTE) PAP TEST, THINPREP, [id number] 00:00:00* Test Item Value Reference Range Interpretation Comme nts SOURCE: (test code = 8001) Cervical/Endocervical SLIDES: (test code = 8011) 1 LMP: (test code = 8021) 08/2017 SPECIMEN ADEQUACY: (test code = 40264) (NOTE) INTERPRETATION: (test code = 37075) NO EPITHELIAL ABNORMALITY SEE BELOW OTHER COMMENTS: (test code = 8081) (NOTE) FLOOR AND WALL APPLIER LIQUID: (test code = 8101) Khushi EvangelistaSCT(ASCP)CT(IAC) LOCATION: (test code = 64407) (NOTE) CPT: (test code = 8140) (NOTE) PAP TEST, THINPREP, [id number] 00:00:00* Test Item Value Reference Range Interpretation Comme nts SOURCE: (test code = 8001) Cervical/Endocervical SLIDES: (test code = 8011) 1 LMP: (test code = 8021) 08/2017 SPECIMEN ADEQUACY: (test code = 52933) (NOTE) INTERPRETATION: (test code = 41633) NO EPITHELIAL ABNORMALITY SEE BELOW OTHER COMMENTS: (test code = 8081) (NOTE) FLOOR AND WALL APPLIER LIQUID: (test code = 8101) ELIE Cabrera(ASCP)CT(IAC) LOCATION: (test code = 54666) (NOTE) CPT: (test code = 8140) (NOTE) PAP TEST, THINPREP, [id number] 00:00:00* Test Item Value Reference Range Interpretation Comme nts SOURCE: (test code = 8001) Cervical/Endocervical SLIDES: (test code = 8011) 1 LMP: (test code = 8021) 08/2017 SPECIMEN ADEQUACY: (test code = 34820) (NOTE) INTERPRETATION: (test code = 82317) NO EPITHELIAL ABNORMALITY SEE BELOW OTHER COMMENTS: (test code = 8081) (NOTE) FLOOR AND WALL APPLIER LIQUID: (test code = 8101) Khushi EvangelistaSCT(ASCP)CT(IAC) LOCATION: (test code = 15990) (NOTE) CPT: (test code = 8140) (NOTE) HPV HIGH RISK WITH GENOTYPE, [id number] 00:00:00* Test Item Value Reference Range Interpretation Comme nts HPV HIGH RISK INTERP (test c ode = 09658) NEGATIVE HPV 16 (test code = 82158) NEGATIVE HPV 18 (test code = 05893) NEGATIVE HPV, HR, OTHER GENOTYPES (te st code = 58764) NEGATIVE HPV HIGH RISK WITH GENOTYPE, [id number] 00:00:00* Test Item Value Reference Range Interpretation Comme nts HPV HIGH RISK INTERP (test c ode = 14840) NEGATIVE HPV 16 (test code = 53584) NEGATIVE HPV 18 (test code = 01448) NEGATIVE HPV, HR, OTHER GENOTYPES (te st code = 62244) NEGATIVE HPV HIGH RISK WITH GENOTYPE, [id number] 00:00:00* Test Item Value Reference Range Interpretation Comme nts HPV HIGH RISK INTERP (test c ode = 66260) NEGATIVE HPV 16 (test code = 53692) NEGATIVE HPV 18 (test code = 08930) NEGATIVE HPV, HR, OTHER GENOTYPES (te st code = 41113) NEGATIVE HPV HIGH RISK WITH GENOTYPE, [id number] 00:00:00* Test Item Value Reference Range Interpretation Comme nts HPV HIGH RISK INTERP (test c ode = 23879) NEGATIVE HPV 16 (test code = 28360) NEGATIVE HPV 18 (test code = 43395) NEGATIVE HPV, HR, OTHER GENOTYPES (te st code = 45902) NEGATIVE HPV HIGH RISK WITH GENOTYPE, [id number] 00:00:00* Test Item Value Reference Range Interpretation Comme nts HPV HIGH RISK INTERP (test c ode = 46176) NEGATIVE HPV 16 (test code = 85950) NEGATIVE HPV 18 (test code = 24877) NEGATIVE HPV, HR, OTHER GENOTYPES (te st code = 29014) NEGATIVE HPV HIGH RISK WITH GENOTYPE, [id number] 00:00:00* Test Item Value Reference Range Interpretation Comme nts HPV HIGH RISK INTERP (test c ode = 68156) NEGATIVE HPV 16 (test code = 23463) NEGATIVE HPV 18 (test code = 53369) NEGATIVE HPV, HR, OTHER GENOTYPES (te st code = 37380) NEGATIVE
[2023-02-15 16:23] VITALS: BP 140/95; TEMP 98; O2SAT 98
== END 2023-02-15 16:10 | disposition home or self-care (01) ==
LOC: ER 15:27
DX: R56.9 Unspecified convulsions (principal); V47.5XXA Car driver injured in collision with fixed or stationary object in traffic accident, initial encounter; Z91.040 Latex allergy status
CPT/HCPCS: 99282